=== PATIENT | female | born 1975 | race Caucasian/White ===

== ENCOUNTER 2020-03-27 12:50 | Emergency (ER) | payer MEDICARE, MEDICAID, SELFPAY ==
--- NOTE | 2020-03-27 12:54 | CT_ITS ---
EXAMINATION: CT HEAD WITHOUT CONTRAST (STROKE PROTOCOL) CLINICAL INFORMATION: Stroke protocol. Headache with weakness COMPARISON: October 10, 2018 TECHNIQUE: Contiguous axial imaging was performed from the skull base to vertex without intravenous administration of contrast. This CT examination was performed using dose optimization techniques as appropriate, variously including the following: *Automated exposure control *Adjustment of mA and/or kV according to patient size (this includes techniques or standardized protocols for targeted exams where dose is matched to indication/reason for exam; i.e. extremities or head) *Use of iterative reconstruction technique DLP: 556 mGy-cm FINDINGS: There is no intracranial hemorrhage, hematoma, or extra-axial fluid collection. The ventricles are normal in size. There is no hydrocephalus, edema, or mass effect. The shah-white matter differentiation appears symmetric. There is no acute infarct or mass lesion. The calvarium appears intact. There is no pneumocephalus or orbital emphysema. The visualized sinuses and middle ears and mastoid air cells show no significant mucosal thickening. There are no air-fluid levels. CT/CT head for stroke IMPRESSION: No acute intracranial pathology. This critical result was discussed with Dr. Rayo at 1:12 PM hours on March 27, 2020+. It was ascertained that the content and urgency of the report was understood at the time of direct communication.
[2020-03-27 13:04] VITALS: BP 126/87; BP 143/83; PULSE 75; PULSE 82; RESP 14; TEMP 36.9; O2SAT 96; O2SAT 98; BMI 26.8
[2020-03-27] MEDS: ondansetron HCL 4 MG/2 ML VIAL IVPUSH (13:30)
[2020-03-27] MEDS: Ketorolac Tromethamine 30 MG/ML VIAL IVPUSH (13:30)
[2020-03-27] MEDS: diphenhydrAMINE HCL 50 MG/ML VIAL 25 MG IVPUSH (13:30)
[2020-03-27] MEDS: Prochlorperazine Edisylate 10 MG/2 ML VIAL IVPUSH (13:30)
[2020-03-27 13:35] VITALS: BP 138/78; PULSE 100
--- NOTE | 2020-03-27 13:36 | ED.HA ---
HPI - Headache General Chief Complaint: Headache Stated Complaint: r sided weakness/facial droop, lkwt 1300 yesterday Time Seen by Provider: 03/27/20 12:54 History of Present Illness HPI Narrative: Patient has a history of migraine headaches that is complex in the past. With history of having right arm weakness with her headaches in the past. Presented today having similar headaches that is on the right side associated with right arm weakness that started about 24 hours ago. Patient denies any fever chills. No change in vision. Positive photophobia. Headache similar to previous migraine. No coughing congestion upper respiratory symptoms. + nausea no vomiting. Related Data Previous Rx's Medication Instructions Recorded ibuprofen 400 mg PO Q6H PRN #20 tab 03/27/20 ondansetron 4 mg PO TID PRN 5 Days #10 tab 03/27/20 Allergies Allergy/AdvReac Type Severity Reaction Status Date / Time lamotrigine [From Lamictal] Allergy Mild RASH Unverified 01/17/20 17:27 lithium Allergy Unknown Verified 04/24/15 00:00 mushroom Allergy Unknown SWELLING Unverified 01/17/20 17:27 divalproex sodium AdvReac Unknown HALLUCINATI Unverified 01/17/20 17:27 [From DEPAKOTE] ONS Review of Systems Review of Systems: Constitutional: No Weight loss, No Fever, No Chills, No Night Sweats, No Fatigue, No Malaise ENT/Mouth: No Hearing loss, No Ear Pain, No Nasal Congestion, No Sinus Pain, No Hoarseness, No sore throat, No Rhinorrhea, No Swallowing Difficulty Eyes: No Eye Pain, No Swelling, No Redness, No Foreign Body, No Discharge, No Vision Changes Cardiovascular: No Chest Pain, No SOB, No Dyspnea on Exertion, No Orthopnea, No Edema, No Palpitations Respiratory: No Cough, No Sputum, No Wheezing, No Smoke Exposure, No Dyspnea Gastrointestinal: No Nausea, No Vomiting, No Diarrhea, No Constipation, No abdominal Pain, No Hematochezia, No Melena Genitourinary: no irregular bleeding, No Dysuria, No Urinary Frequency, No Hematuria, No Urinary Incontinence, No Urgency, No Flank Pain, No Urinary Flow Changes, No Hesitancy Musculoskeletal: No joint pain, No Myalgias, No Joint Swelling Skin: No Skin Lesions, No rash Neuro: No Weakness, No Numbness, No Paresthesias, No Loss of Consciousness, No Dizziness, No Headache Psych: No Anxiety/Panic, No Depression, No SI/HI/AH/VH, No Social Issues, Heme/Lymph: No Bruising, No Bleeding,No Lymphadenopathy Endocrine: No Polyuria, No Polydipsia, No Temperature Intolerance [facility] Past Medical History Attestation statement: The following information was validated with the patient. Source: unable to obtain Medical History Migraine PTSD (post-traumatic stress disorder) Seasonal allergies Social History Social History Alcohol intake: never Smoking Status: Never smoker Use of substances other than those prescribed or required for medical reasons: No Advance Directives: No Advance Directives Information Provided: Yes Physical Exam Vital Signs: Vital Signs: Last Vital Signs Temp 98.4 F 03/27/20 13:04 Pulse 80 03/27/20 15:12 Resp 18 03/27/20 15:12 BP 105/57 L 03/27/20 15:12 Pulse Ox 100 03/27/20 15:12 Body Mass Index 26.8 Appearance: Alert. Oriented X3. No acute distress. Eyes: Pupils equal, round and reactive to light. ENT: Pharynx normal. Neck: Normal inspection. Neck supple. No lymph nodes noted. No crepitus CVS: Normal heart rate and rhythm. Pulses normal. Normal S1 and S2 Respiratory: No respiratory distress. Breath sounds normal. No Wheezing. No rales Abdomen: Soft and nontender. No rigidity. No distention. good BS x4 Skin: Skin warm and dry. Normal skin color. Normal skin turgor. Extremities: No lower extremity edema. Neurovascular intact to all extremities. No Lacerations. No Rash Neuro: Oriented X 3. No motor deficit. No sensory deficit. Moving all extermities. No slurred speech NIH stroke scale was 0. NIH Stroke Scale Internal: Initial- Upon Arrival Level of Consciousness: Alert Level of Consciousness Questions: Answers both questions correctly Level of Consciousness Commands: Performs both tasks correctly Best Gaze: Normal Visual: No visual loss Facial Palsy: Normal Motor Arm (Right): No drift Motor Arm (Left): No drift Motor Leg (Right): No drift Motor Leg (Left): No drift Limb Ataxia: Absent Sensory: Normal Best Language: No aphasia Dysarthia: Normal Extinction and Inattention: No abnormality Score: 0 MDM - Headache MDM Narrative Medical decision making narrative: Patient has a history of similar headaches in the past. Positive history of having right arm weakness. Will give pain medication. Patient well appearing. No distress. Repeat exam patient well-appearing headache has subsided along with the weakness has disappeared. Likely symptoms related to complex migraine. CT scan of the head was negative for any acute evidence of bleeding or mass. In stable condition. Will discharge home Differential Diagnosis Differential diagnosis: Likely migraine, tension headache, subarachnoid hemorrhage, headache and meningitis Medical Records Attestation: I reviewed the patient's medical records. Lab Data Attestation: I reviewed the patient's lab results. Result diagrams: 03/27/20 14:30 03/27/20 14:30 Labs: Lab Results 03/27/20 03/27/20 Range/Units 14:30 14:30 WBC 7.7 (4.8-10.8) X10*3/uL RBC 4.33 (4.20-5.50) X10*6/uL Hgb 12.7 (12.0-16.0) g/dl Hct 37.7 (37-47) % MCV 87.1 (80-98) fL MCH 29.3 (27.0-33.0) pg MCHC 33.7 (31.0-35.0) g/dl RDW 12.0 (11.0-16.0) % Plt Count 298 (160-400) X10*3/uL MPV 9.4 (9.4-12.3) fL Immature Gran % (Auto) 0.3 (0.0-0.4) % Neut % (Auto) 58.2 (45-73) % Lymph % (Auto) 28.3 (20-40) % [place] % (Auto) 8.9 (2-11) % Eos % (Auto) 3.9 (0-4) % Baso % (Auto) 0.4 (0-2) % Lymph # (Auto) 2.2 (1.2-4.9) X10*3/uL [place] # (Auto) 0.7 (0.1-1.2) X10*3/uL Eos # (Auto) 0.3 (0.0-0.4) X10*3/uL Baso # (Auto) 0.0 (0.0-0.2) X10*3/uL Abs Immat Gran (auto) 0.02 (0.00-0.03) X10*3/uL Absolute Neuts (auto) 4.5 (2.0-8.3) X10*3/uL Absolute Nucleated RBC 0.000 (0.0-0.012) X10*3/uL Nucleated RBC % (auto) 0.0 (0.0-0.2) /100WBC Sodium 138 (135-145) mmol/L Potassium 4.0 (3.3-5.1) mmol/l Chloride 108 (96-108) mmol/L Carbon Dioxide 23 (22-29) mmol/L Anion Gap 11 L (12-20) BUN 14 (9-16) mg/dL Creatinine 0.88 (0.5-1.4) mg/dL Estim Creat Clear Calc 80.4 Estimated GFR > 60 Random Glucose 101 (60-115) mg/dL Calcium 8.4 (8.4-10.2) mg/dL Total Bilirubin 0.7 (0.0-1.0) mg/dL AST 13 (5-31) U/L ALT 10 (0-31) U/L Alkaline Phosphatase 45 (39-117) U/L Total Protein 5.7 L (6.5-8.0) g/dL Albumin 3.7 (3.5-5.0) g/dL ECG Data Attestation: I personally reviewed and interpreted this ECG as follows: Discharge Plan Discharge Clinical Impression: Migraine Patient Disposition: Home, Self-Care Instructions: Acute Headache (ED) Prescriptions: New ibuprofen 400 mg tablet 400 mg PO Q6H PRN (Reason: pain) Qty: 20 RF: 0 ondansetron 4 mg tablet,disintegrating 4 mg PO TID PRN (Reason: nausea and vomiting) 5 Days Qty: 10 RF: 0 Referrals: [facility] [Primary Care Provider] - 2 days
[2020-03-27 14:05] VITALS: BP 114/66; PULSE 78; O2SAT 98
[2020-03-27 14:38] LABS: MANUAL DIFF FLAG NO
[2020-03-27 14:39] LABS: Basophils Percent Auto 0.4 % (0-2); Eosinophils Absolute Auto 0.3 X10*3/uL (0.0-0.4); Eosinophils Percent Auto 3.9 % (0-4); Hematocrit 37.7 % (37-47); Hemoglobin 12.7 g/dl (12.0-16.0); Imm Gran Abs Auto 0.02 X10*3/uL (0.00-0.03); Imm Gran Pct Auto 0.3 % (0.0-0.4); Lymphocytes Absolute Auto 2.2 X10*3/uL (1.2-4.9); Lymphocytes Percent Auto 28.3 % (20-40); Mean Corpuscular HGB Conc 33.7 g/dl (31.0-35.0); Mean Corpuscular Hemoglobin 29.3 pg (27.0-33.0); Mean Corpuscular Volume 87.1 fL (80-98); Mean Platelet Volume 9.4 fL (9.4-12.3); Monocytes Absolute Auto 0.7 X10*3/uL (0.1-1.2); Monocytes Percent Auto 8.9 % (2-11); Neutrophils Absolute Auto 4.5 X10*3/uL (2.0-8.3); Neutrophils Percent Auto 58.2 % (45-73); Platelet Count 298 X10*3/uL (160-400); Red Blood Count 4.33 X10*6/uL (4.20-5.50); White Blood Count 7.7 X10*3/uL (4.8-10.8)
[2020-03-27 14:59] LABS: Alanine Aminotransferase 10 U/L (0-31); Albumin Level 3.7 g/dL (3.5-5.0); Alkaline Phosphatase 45 U/L (39-117); Anion Gap 11 (12-20); Aspartate Amino Transferase 13 U/L (5-31); Bilirubin Total 0.7 mg/dL (0.0-1.0); Blood Urea Nitrogen 14 mg/dL (9-16); Calcium 8.4 mg/dL (8.4-10.2); Carbon Dioxide 23 mmol/L (22-29); Chloride 108 mmol/L (96-108); Creatinine Clr Calc Pharmacy 80.4; Estimated Glomerular Filt Rate > 60; Glucose Random 101 mg/dL (60-115); Sodium 138 mmol/L (135-145); Total Protein 5.7 g/dL (6.5-8.0)
--- NOTE | 2020-03-27 15:00 | PC.NURSE ---
received report from maria luisa carvajal
[2020-03-27] MEDS: HYDROmorphone HCl 0.5 MG/0.5 ML SYRINGE IVPUSH (15:11)
--- NOTE | 2020-03-27 15:11 | PC.NURSE ---
pt resting in the stretcher with eyes shut, pt states heaving a headache that started yesterday, hx of migraines. headache located on the posterior of the head, some light sensitivity, states feeling a little better since arrival, pain at 7/10. pt medicated per md orders
[2020-03-27 15:12] VITALS: BP 105/57; PULSE 80; RESP 18; O2SAT 100
--- NOTE | 2020-03-27 15:42 | PC.NURSE ---
pt reports feeling better and would like to go home
[2020-03-27 16:40] LABS: Glucose, Whole Blood 130 mg/dL (60-115)
--- NOTE | 2020-03-27 17:48 | PC.NURSE ---
Late entry for 1730. RICK Romero present in WR to speak with patient. Pt has been in WR for over an hour while legal secretary receptionist and ED director have attempted to find her a ride home. Pt stated repeatedly that she had no ride. This RN spoke iwht on phone who stated they had no money for a cab. Cab voucher was dispensed but cabs were not available during the holiday. In the end patient found a ride from her mother and has left. She was offered food and drink while in the WR and was calm during her time in WR.
== END 2020-03-27 15:51 | disposition home or self-care (01) ==
PROVIDERS: Nurse Practitioner Primary Care; Emergency Provider Emergency Medicine Emergency Medical Services
DX: G43.909 Migraine, unspecified, not intractable, without status migrainosus (principal); R29.810 Facial weakness; Z79.899 Other long term (current) drug therapy
CPT/HCPCS: 36415; 70450; 80053; 82947; 85025; 96374; 96375; 99284; J1170; J1200; J1885; J2405

== ENCOUNTER 2020-06-12 | Outpatient (REF) | payer OTHER, SELFPAY ==
[2020-06-20 05:02] LABS: HPV mRNA E6/E7 rflx Not Detected (Not Detected)
== END 2020-06-12 00:01 | disposition home or self-care (01) ==
LOC: HO.LNP
PROVIDERS: Visit Provider Internal Medicine
DX: Z12.4 Encounter for screening for malignant neoplasm of cervix (principal); Z11.51 Encounter for screening for human papillomavirus (HPV)
CPT/HCPCS: 87624; 88142

== ENCOUNTER 2020-07-04 08:56 | Outpatient (REF) | payer OTHER, SELFPAY ==
[2020-07-04 11:16] LABS: MANUAL DIFF FLAG NO
[2020-07-04 11:30] LABS: Basophils Percent Auto 0.6 % (0-2); Eosinophils Absolute Auto 0.3 X10*3/uL (0.0-0.4); Hematocrit 41.7 % (37-47); Hemoglobin 14.1 g/dl (12.0-16.0); Imm Gran Abs Auto 0.02 X10*3/uL (0.00-0.03); Imm Gran Pct Auto 0.3 % (0.0-0.4); Lymphocytes Absolute Auto 2.2 X10*3/uL (1.2-4.9); Lymphocytes Percent Auto 30.4 % (20-40); Mean Corpuscular HGB Conc 33.8 g/dl (31.0-35.0); Mean Corpuscular Hemoglobin 29.3 pg (27.0-33.0); Mean Corpuscular Volume 86.7 fL (80-98); Monocytes Absolute Auto 0.6 X10*3/uL (0.1-1.2); Monocytes Percent Auto 8.5 % (2-11); Neutrophils Absolute Auto 4.1 X10*3/uL (2.0-8.3); Neutrophils Percent Auto 56.2 % (45-73); Platelet Count 364 X10*3/uL (160-400); Red Blood Count 4.81 X10*6/uL (4.20-5.50); Red Cell Distribution Width 12.7 % (11.0-16.0); White Blood Count 7.2 X10*3/uL (4.8-10.8)
[2020-07-04 11:56] LABS: Alanine Aminotransferase 11 U/L (0-31); Anion Gap 12 (12-20); Aspartate Amino Transferase 17 U/L (5-31); Blood Urea Nitrogen 13 mg/dL (9-16); Calcium 9.3 mg/dL (8.4-10.2); Carbon Dioxide 21 mmol/L (22-29); Chloride 108 mmol/L (96-108); Cholesterol 210 mg/dL; Estimated Glomerular Filt Rate > 60; Glucose Fasting 95 mg/dL (60-99); HDL Cholesterol 52 mg/dL; LDL Cholesterol Calculated 139 mg/dl; Sodium 137 mmol/L (135-145); Triglycerides 98 mg/dL
[2020-07-04 12:23] LABS: TSH reflex Free T4 0.38 uIU/mL (0.32-4.0); Vitamin D 25-OH Total 11.8 ng/mL (>30)
== END 2020-07-04 08:57 | disposition home or self-care (01) ==
LOC: HO.HMGCLDS 08:56
PROVIDERS: PCP Internal Medicine; Visit Provider Internal Medicine
DX: Z00.01 Encounter for general adult medical examination with abnormal findings (principal); I10 Essential (primary) hypertension; G43.909 Migraine, unspecified, not intractable, without status migrainosus; F43.10 Post-traumatic stress disorder, unspecified; Z20.822 Contact with and (suspected) exposure to COVID-19
CPT/HCPCS: 36415; 80048; 80061; 82306; 84443; 84450; 84460; 85025; C9803; U0003; U0005

== ENCOUNTER 2021-06-17 08:39 | Outpatient (RCR) | payer OTHER, SELFPAY ==
--- NOTE | 2021-06-17 10:44 | MHC.PT.EP ---
[facility] [place] Office [place] Office [place] Office [address] Huma Castillo [address] [phone] F: [phone] F: [phone] F: [phone] F: [phone] Physical Therapy Plan of Care Date of Evaluation: Date of Surgery: n/a Diagnosis: low back pain Assessment: Patient is a 45 year old female presenting to PT with complaints of pain in her low back and B hips. Pt reports onset of pain began 2 weeks ago when bowling. She presents today with impairments in pain, lumbar ROM, hip strength, core strength, and posture. 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 Pt expresses terminal gauger goal of reducing pain, and is motivated to work towards this in PT. Clinical presentation today is most consistent with signs and sx associated with chronic low back pain with likely myofascial component and pt will benefit from skilled PT to address the following problems and impairments noted upon evaluation: pain, lumbar ROM, hip strength, core strength, and posture. These problems limit the patient with the following functional activities: ADLs, ambulation, sitting, stair negotiation, transfers, lifting. The prescribed treatment plan of care is medically necessary. Co-morbidities of PTSD were identified and taken into considerations of plan of care. Pt was educated on HEP, role of PT, prognosis, POC. Frequency and Duration: The patient will be seen 2 x week x 4 weeks Short Term Goals: Pt will demonstrate <4/10 pain at rest in 2 weeks for improved QOL. Pt will demonstrate improved hip strength by 1/3 MMT for improved lumbopelvic stability in 2 weeks. Pt will demonstrate ability to perform PPT with good TA activation in 2 weeks for improved core stability. Pt will demonstrate ability to perform lumbar AROM with min to no pain in 2 weeks. [facility] Goals: Pt will demonstrate <20% disability on Evi in 4 weeks for improved overall functional mobility. Pt will demonstrate ability to ambulate x 20 min with min to no pain in 4 weeks for improved access to the community. Pt will demonstrate ability to complete ADLs with min to no pain in 4 weeks for improved tolerance to role at home. Treatment Plan: Modalities to reduce pain, spasms and effusion. Manual therapy to restore motion and function. Therapeutic exercise to improve strength and flexibility. Neuromuscular re-education for posture and balance. Therapeutic activities to return to functional activities of daily living. Electronically signed by: Candida Huynh, PT, DPT, ATC Please sign and return to therapist. Thank you for your referral.
--- NOTE | 2021-06-29 10:58 | MHC.PT.DC ---
[facility] [place] Office [place] Office [place] Office [address] [phone] F: [phone] F: [phone] F: [phone] F: [phone] Physical Therapy Discharge Report Diagnosis: low back pain Date of Surgery: n/a Date of Evaluation: 06/17/21 Date of Discharge: 06/29/21 Treatments to Date: 1 Cancellations to Date: 0 No Shows to Date: 3 Discharge Status: Visit Non-compliance Discharge Summary: Pt has failed to comply with [facility] [place] policy and now showed her first 3 appts since the eval. Electronically signed by: Candida Huynh, PT, DPT, ATC Please sign and return to therapist. Thank you for your referral.
== END 2021-06-29 10:59 | disposition home or self-care (01) ==
LOC: HO.PTCHIC 08:39
PROVIDERS: PCP Internal Medicine; Visit Provider Internal Medicine
DX: M54.50 Low back pain, unspecified (principal)
CPT/HCPCS: 97110; 97162

== ENCOUNTER 2021-08-28 12:10 | Emergency (ER) | payer OTHER, SELFPAY ==
[2021-08-28 12:24] VITALS: BP 177/93; PULSE 82; RESP 19; TEMP 36.6; O2SAT 98; BMI 25.7
--- NOTE | 2021-08-28 13:01 | ED.HA ---
HPI - Headache General Chief Complaint: Headache Stated Complaint: migraine head pressure visual distrubances Time Seen by Provider: 08/28/21 13:01 Source: patient Mode of arrival: ambulatory Limitations: no limitations History of Present Illness HPI Narrative: Patient recently had COVID about 3 weeks ago with history of migraine headache been having headache since then localized mostly in the right side with dizziness vertiginous feeling especially moving the head to the right side with tinnitus. No fever no chills no vomiting has some nausea no cough at this time no shortness of breath Related Data Home Medications Medication Instructions Recorded Confirmed ibuprofen 200 mg tablet 200 mg PO Q6H PRN 06/19/21 06/25/21 Previous Rx's Medication Instructions Recorded dqcwhabdvg-jecryntbvdwle-bpjpaobu 1 cap PO Q12H PRN #10 cap 06/19/21 50 mg-325 mg-40 mg capsule amoxicillin 500 mg capsule 500 mg PO Q8H #30 cap 07/21/21 kuiyrrawel-fgbxtjjsufohy-xncevikw 1 cap PO Q6H PRN #20 cap 08/28/21 50 mg-300 mg-40 mg capsule (Fioricet) meclizine 25 mg tablet 25 mg PO TID PRN #20 tab 08/28/21 ondansetron 4 mg disintegrating 4 mg PO Q6-8H PRN #14 tab 08/28/21 tablet Allergies Allergy/AdvReac Type Severity Reaction Status Date / Time lamotrigine [From Lamictal] Allergy Mild RASH Verified 07/21/21 10:02 mushroom Allergy Unknown SWELLING Verified 07/21/21 10:02 divalproex sodium AdvReac Unknown HALLUCINATI Verified 07/21/21 10:02 [From DEPAKOTE] ONS Review of Systems Review of Systems: Yes all other systems are reviewed and are negative [facility] Past Medical History Medical History Encounter for general adult medical examination with abnormal findings Lumbago Migraine PTSD (post-traumatic stress disorder) Seasonal allergies Vertigo Vitamin D deficiency Family History Family History Father Dementia Mother HTN (hypertension) Hyperlipidemia Migraine Maternal Aunt Bipolar disorder Breast cancer Other Mental health disorder Substance use disorder Social History Social History Housing: Apartment Alcohol intake: never Patient Tobacco Use Status: Never used Tobacco Cigarettes Per Day: 3 e-Cigarette/Vaping Use: Currently Using Substance Use Type: Marijuana Advance Directives: No Advance Directives Information Provided: No service: No Current occupational status: employed Physical Exam Vital Signs: Vital Signs: Last Vital Signs Temp 98 F 08/28/21 12:24 Pulse 72 08/28/21 14:25 Resp 16 08/28/21 14:25 BP 117/67 08/28/21 14:25 Pulse Ox 100 08/28/21 14:25 BMI result Body Mass Index 25.7 Appearance: Alert. Oriented X3. No acute distress. Eyes: PERRLA, No Nystagmus ENT: Pharynx normal. Oral Mucosa moist Neck: Normal inspection. Neck supple. CVS: Normal heart rate and rhythm. Pulses normal. Respiratory: No respiratory distress. Equal air entry bilateral, Abdomen: Soft and nontender. Skin: Skin warm and dry. Normal skin color. Normal skin turgor. Extremities: No lower extremity edema. No calf tenderness Neuro: Oriented X 3. No motor deficit. No sensory deficit.No cerebellar signs , cranial nerves II-XII intact MDM - Headache MDM Narrative Medical decision making narrative: Patient with migraine headache and benign positional vertigo and responded to IV medication Decadron Benadryl Toradol and metoclopramide and IV fluid will discharge patient home Lab Data Attestation: I reviewed the patient's lab results. Result diagrams: 08/28/21 13:46 08/28/21 13:46 Labs: Lab Results 08/28/21 08/28/21 Range/Units 13:46 13:46 WBC 8.1 (4.8-10.8) X10*3/uL RBC 4.43 (4.20-5.50) X10*6/uL Hgb 12.7 (12.0-16.0) g/dl Hct 38.2 (37.0-47.0) % MCV 86.2 (80.0-98.0) fL MCH 28.7 (27.0-33.0) pg MCHC 33.2 (31.0-35.0) g/dl RDW 13.2 (11.0-16.0) % Plt Count 398 (160-400) X10*3/uL MPV 9.2 L (9.4-12.3) fL Immature Gran % (Auto) 0.2 (0.0-0.4) % Neut % (Auto) 67.9 (45-73) % Lymph % (Auto) 23.9 (20-40) % [place] % (Auto) 6.2 (2-11) % Eos % (Auto) 1.2 (0-4) % Baso % (Auto) 0.6 (0-2) % Lymph # (Auto) 1.9 (1.2-4.9) X10*3/uL [place] # (Auto) 0.5 (0.1-1.2) X10*3/uL Eos # (Auto) 0.1 (0.0-0.4) X10*3/uL Baso # (Auto) 0.1 (0.0-0.2) X10*3/uL Abs Immat Gran (auto) 0.02 (0.00-0.03) X10*3/uL Absolute Neuts (auto) 5.5 (2.0-8.3) x10*3/uL Absolute Nucleated RBC 0.000 (0.0-0.012) X10*3/uL Nucleated RBC % (auto) 0.0 (0.0-0.2) /100WBC Sodium 139 (135-145) mmol/L Potassium 4.3 (3.3-5.1) mmol/L Chloride 107 (96-108) mmol/L Carbon Dioxide 25 (22-29) mmol/L Anion Gap 11 L (12-20) BUN 12 (9-16) mg/dL Creatinine 0.82 (0.5-1.4) mg/dL Estim Creat Clear Calc 83.0 Estimated GFR > 60 Random Glucose 87 (60-115) mg/dL Calcium 9.6 (8.4-10.2) mg/dL Discharge Plan Discharge Clinical Impression: Migraine, Benign paroxysmal positional vertigo Patient Disposition: Home, Self-Care Instructions: Migraine Headache (ED), Vertigo (ED) Additional Instructions: Rest at home take medication as prescribed and follow with PCP Prescriptions: New herikpcesg-pweyswcijdspt-bqrx [Fioricet] 50-300-40 mg capsule 1 cap PO Q6H PRN (Reason: headache) Qty: 20 0RF meclizine 25 mg tablet 25 mg PO TID PRN (Reason: dizziness) Qty: 20 0RF ondansetron 4 mg tablet,disintegrating 4 mg PO Q6-8H PRN (Reason: nausea and vomiting) Qty: 14 0RF No Action amoxicillin 500 mg capsule 500 mg PO Q8H Qty: 30 0RF ibuprofen 200 mg tablet 200 mg PO Q6H PRN0RF jjdjnhzlgk-xzsredmdzfyjs-utaa 50-325-40 mg capsule 1 cap PO Q12H PRN (Reason: migraine headache) Qty: 10 0RF Interventions: ED Discharge Assessment Last Done: 08/28/21 15:45 Discharge Date/Time: 08/28/21 15:47
[2021-08-28] MEDS: 0.9 % Sodium Chloride 1,000 ML 999 ML IV (13:47)
[2021-08-28] MEDS: diphenhydrAMINE HCL 50 MG/ML VIAL 25 MG IVPUSH (13:48)
[2021-08-28] MEDS: dexAMETHasone sod phosphate 10 MG/ML VIAL IVPUSH (13:48)
[2021-08-28] MEDS: Ketorolac Tromethamine 30 MG/ML VIAL IVPUSH (13:48)
[2021-08-28] MEDS: Metoclopramide HCl 10 MG/2 ML VIAL IVPUSH (13:48)
[2021-08-28 13:54] LABS: MANUAL DIFF FLAG NO
[2021-08-28 14:04] LABS: Basophils Absolute Auto 0.1 X10*3/uL (0.0-0.2); Basophils Percent Auto 0.6 % (0-2); Eosinophils Absolute Auto 0.1 X10*3/uL (0.0-0.4); Eosinophils Percent Auto 1.2 % (0-4); Hematocrit 38.2 % (37.0-47.0); Hemoglobin 12.7 g/dl (12.0-16.0); Imm Gran Abs Auto 0.02 X10*3/uL (0.00-0.03); Imm Gran Pct Auto 0.2 % (0.0-0.4); Lymphocytes Absolute Auto 1.9 X10*3/uL (1.2-4.9); Lymphocytes Percent Auto 23.9 % (20-40); Mean Corpuscular HGB Conc 33.2 g/dl (31.0-35.0); Mean Corpuscular Hemoglobin 28.7 pg (27.0-33.0); Mean Corpuscular Volume 86.2 fL (80.0-98.0); Mean Platelet Volume 9.2 fL (9.4-12.3); Monocytes Absolute Auto 0.5 X10*3/uL (0.1-1.2); Monocytes Percent Auto 6.2 % (2-11); Neutrophils Absolute Auto 5.5 x10*3/uL (2.0-8.3); Neutrophils Percent Auto 67.9 % (45-73); Platelet Count 398 X10*3/uL (160-400); Red Blood Count 4.43 X10*6/uL (4.20-5.50); Red Cell Distribution Width 13.2 % (11.0-16.0); White Blood Count 8.1 X10*3/uL (4.8-10.8)
[2021-08-28 14:21] LABS: Anion Gap 11 (12-20); Blood Urea Nitrogen 12 mg/dL (9-16); Calcium 9.6 mg/dL (8.4-10.2); Carbon Dioxide 25 mmol/L (22-29); Chloride 107 mmol/L (96-108); Estimated Glomerular Filt Rate > 60; Glucose Random 87 mg/dL (60-115); Potassium 4.3 mmol/L (3.3-5.1); Sodium 139 mmol/L (135-145)
[2021-08-28 14:25] VITALS: BP 117/67; PULSE 72; RESP 16; O2SAT 100
== END 2021-08-28 15:47 | disposition home or self-care (01) ==
PROVIDERS: Emergency Provider Internal Medicine; PCP Internal Medicine
DX: G43.909 Migraine, unspecified, not intractable, without status migrainosus (principal); H81.13 Benign paroxysmal vertigo, bilateral; F17.210 Nicotine dependence, cigarettes, uncomplicated; Z71.6 Tobacco abuse counseling; F12.90 Cannabis use, unspecified, uncomplicated; Z79.899 Other long term (current) drug therapy
CPT/HCPCS: 36415; 80048; 85025; 96361; 96374; 96375; 99283; 99284; J1100; J1200; J1885; J2765

== ENCOUNTER → 2021-10-27 08:40 | Outpatient (BNVA) | payer OTHER, SELFPAY | PROVIDERS: PCP Internal Medicine; Visit Provider Nurse Practitioner Family | DX: G43.109 Migraine with aura, not intractable, without status migrainosus (principal); F43.10 Post-traumatic stress disorder, unspecified; F09 Unspecified mental disorder due to known physiological condition; R25.9 Unspecified abnormal involuntary movements | CPT/HCPCS: 99202 ==

== ENCOUNTER 2021-11-30 17:08 | Inpatient (IN) | payer OTHER, SELFPAY ==
--- NOTE | 2021-11-30 | ECG_ITS ---
Test Reason : CP Blood Pressure : / mmHG Vent. Rate : 062 BPM Atrial Rate : 062 BPM P-R Int : 168 ms QRS Dur : 078 ms QT Int : 404 ms P-R-T Axes : 054 082 052 degrees QTc Int : 410 ms Normal sinus rhythm with sinus arrhythmia Normal ECG When compared with ECG of 09-MAR-2019 08:16, No significant change was found Referred By: Oleksandr Ramey Electronically Signed By:KADEEM GIVENS MD
[2021-11-30 17:10] VITALS: BP 158/96; PULSE 107; RESP 18; TEMP 37; O2SAT 99; BMI 25.7
[2021-11-30 17:47] LABS: Amphetamine Screen Urine Not Detected (Not Detect); Barbiturates, Urine Not Detected (Not Detect); Benzodiazepines Screen Urine Not Detected (Not Detect); Cannabinoid Screen Urine POSITIVE (Not Detect); Cocaine Screen Urine Not Detected (Not Detect); Fentanyl, urine Not Detected (Not Detect); Opiate Screen Urine Not Detected (Not Detect); Phencyclidine Screen Urine Not Detected (Not Detect)
[2021-11-30 17:59] LABS: COVID-19 Test Negative (Negative); IDNOW Serial# 16C4AD1C
--- NOTE | 2021-11-30 18:21 | ED.PSYCH ---
HPI - Psych General Chief Complaint: Psychiatric Symptoms Stated Complaint: Crisis Time Seen by Provider: 11/30/21 18:21 Source: patient Mode of arrival: ambulatory Limitations: no limitations History of Present Illness HPI Narrative: Patient history of bipolar disorder under increased stress lately, history of 3 suicidal attempts in the past today while bringing her home got upset and felt like hurting herself by overdosing on Tylenol she got further depressed and suicidal when her spouse under stress told her why do not you just kill yourself Related Data Home Medications Medication Instructions Recorded Confirmed ibuprofen 200 mg tablet 200 mg PO Q6H PRN Pain 06/19/21 11/30/21 magnesium oxide 400 mg (241.3 mg 400 mg PO DAILY 11/30/21 11/30/21 magnesium) tablet Previous Rx's Medication Instructions Recorded dtuhmhtswy-jwstgtkybpitu-tvmeciyi 1 cap PO Q4H PRN migraine headache 10/27/21 50 mg-325 mg-40 mg capsule 30 days #16 caps onabotulinumtoxinA 200 unit 155 unit IM ONCE 12 weeks #1 ea 10/27/21 solution for injection (Botox) riboflavin (vitamin B2) 400 mg 400 mg PO DAILY 30 days #30 tabs 10/27/21 tablet rimegepant 75 mg disintegrating 75 mg PO Q OTHER DAY PRN migraine 11/26/21 tablet (Nurtec ODT) headache 30 days #16 tabs Allergies Allergy/AdvReac Type Severity Reaction Status Date / Time lamotrigine [From Lamictal] Allergy Mild RASH Verified 11/30/21 17:10 mushroom Allergy Unknown SWELLING Verified 11/30/21 17:10 divalproex sodium AdvReac Unknown HALLUCINATI Verified 11/30/21 17:10 [From DEPAKOTE] ONS Review of Systems Review of Systems: Yes all other systems are reviewed and are negative PMFSH Past Medical History Medical History Encounter for general adult medical examination with abnormal findings Lumbago Migraine PTSD (post-traumatic stress disorder) Seasonal allergies Vertigo Vitamin D deficiency Family History Family History Father Dementia Mother HTN (hypertension) Hyperlipidemia Migraine Maternal Aunt Bipolar disorder Breast cancer Other Mental health disorder Substance use disorder Social History Social History Housing: Apartment Alcohol intake: never Patient Tobacco Use Status: Current everyday Tobacco user Cigarettes Per Day: 3 e-Cigarette/Vaping Use: Currently Using Use of substances other than those prescribed or required for medical reasons: Yes Substance Use Type: Marijuana Advance Directives: No Advance Directives Information Provided: No service: No Current occupational status: employed Physical Exam Vital Signs: Vital Signs: Last Vital Signs Temp 98.6 F 11/30/21 17:10 Pulse 73 12/01/21 00:55 Resp 18 12/01/21 00:55 BP 183/99 H 12/01/21 00:55 Pulse Ox 100 12/01/21 00:55 O2 Del Method 12/01/21 00:55 BMI result Body Mass Index 25.7 Appearance: Alert. Oriented X3. No acute distress. Eyes: PERRLA, No Nystagmus ENT: Pharynx normal. Oral Mucosa moist Neck: Normal inspection. Neck supple. CVS: Normal heart rate and rhythm. Pulses normal. Respiratory: No respiratory distress. Equal air entry bilateral, no wheezing/rales/rhonchi Abdomen: Soft and nontender. Bowel sounds are present, no mass palpable, no CVA tenderness Skin: Skin warm and dry. Normal skin color. Normal skin turgor. Extremities: No lower extremity edema. No calf tenderness psych: Anxious very depressed with suicidal thoughts no hallucinations or delusions Neuro: Oriented X 3. No motor deficit. No sensory deficit.No cerebellar signs , cranial nerves II-XII intact MDM - Psych Lab Data Labs: Lab Results 11/30/21 11/30/21 Range/Units 17:22 17:22 Urine Opiates Screen Not Detected (Not Detect) Urine Fentanyl Screen Not Detected (Not Detect) Ur Barbiturates Screen Not Detected (Not Detect) Ur Phencyclidine Scrn Not Detected (Not Detect) Ur Amphetamines Screen Not Detected (Not Detect) U Benzodiazepines Scrn Not Detected (Not Detect) Urine Cocaine Screen Not Detected (Not Detect) U Marijuana (THC) Screen POSITIVE H (Not Detect) COVID-19 (ADRIEN) Negative (Negative) COVID-19 Clin Com See Note Discharge Plan Discharge Clinical Impression: Depression, Suicidal thoughts Patient Disposition: Still a Patient Prescriptions: No Action Nurtec ODT 75 mg tablet,disintegrating 75 mg PO Q OTHER DAY PRN (Reason: migraine headache) 30 Days Qty: 16 3RF Rx Instructions: at onset of migraine (do not take Fioricet for 7 days prior) magnesium oxide 400 mg (241.3 mg magnesium) tablet 400 mg PO DAILY Rx Instructions: may hold for loose stools ibuprofen 200 mg tablet 200 mg PO Q6H PRN (Reason: Pain) riboflavin (vitamin B2) 400 mg tablet 400 mg PO DAILY 30 Days Qty: 30 6RF Botox 200 unit recon soln 155 unit IM ONCE 84 Days Qty: 1 3RF Rx Instructions: Inject 155 units IM across forehead, scalp and иван trapezius Q 12 weeks tmonfsmdoo-ydwhmedbldqas-bgxl 50-325-40 mg capsule 1 cap PO Q4H PRN (Reason: migraine headache) 30 Days Qty: 16 2RF Rx Instructions: One tab at onset of migraine, may repeat in 4 hours (max 2 caps per day or 4 caps per week)
[2021-11-30 19:47] VITALS: BP 147/100; PULSE 64; RESP 16; O2SAT 100
--- NOTE | 2021-11-30 19:57 | PC.NURSE ---
Addendum entered by Ankit Lyons 11/30/21 21:11: Patient reports chest pain that is similar to chest pain she has had in the past. Dr. Mckeon made aware. Original Note: Dr. Mckeon made aware of patients BP. Patient reports incident of chest pain and palpitation for a brief moment yesterday
[2021-11-30 19:59] VITALS: BP 145/95
--- NOTE | 2021-11-30 21:04 | MHC.CARE ---
Desiree smart sheet submitted
--- NOTE | 2021-11-30 21:11 | PHA.MEDREC ---
Pharmacy Consult ? Medication Reconciliation Pharmacy has completed the medication reconciliation.
[2021-12-01 00:55] VITALS: BP 183/99; PULSE 73; RESP 18; O2SAT 100
[2021-12-01] MEDS: LORazepam 1 MG TABLET 2 MG PO ×2 (01:19→10:00)
--- NOTE | 2021-12-01 07:18 | PC.NURSE ---
patient appears to remain at rest at present, respirations are even and unlabored patient appears in no distress
[2021-12-01 07:48] VITALS: BP 124/78; PULSE 78; RESP 14; TEMP 36.1; O2SAT 97
[2021-12-01] MEDS: Nicotine Polacrilex 2 MG GUM BUCCAL (08:02)
[2021-12-01] MEDS: Magnesium Oxide 400 MG TABLET PO ×2 (09:59→21:53)
[2021-12-01] MEDS: Butalb/Acetamin/Caff 50/325/40 TABLET 1 TAB PO ×2 (09:59→16:54)
[2021-12-01 13:16] LABS: MANUAL DIFF FLAG NO
[2021-12-01 13:21] LABS: Basophils Percent Auto 0.4 % (0-2); Eosinophils Absolute Auto 0.2 X10*3/uL (0.0-0.4); Eosinophils Percent Auto 2.6 % (0-4); Hematocrit 39.9 % (37.0-47.0); Hemoglobin 13.6 g/dl (12.0-16.0); Imm Gran Abs Auto 0.02 X10*3/uL (0.00-0.03); Imm Gran Pct Auto 0.3 % (0.0-0.4); Lymphocytes Absolute Auto 2.1 X10*3/uL (1.2-4.9); Lymphocytes Percent Auto 30.3 % (20-40); Mean Corpuscular HGB Conc 34.1 g/dl (31.0-35.0); Mean Corpuscular Hemoglobin 29.1 pg (27.0-33.0); Mean Corpuscular Volume 85.4 fL (80.0-98.0); Mean Platelet Volume 9.3 fL (9.4-12.3); Monocytes Absolute Auto 0.7 X10*3/uL (0.1-1.2); Monocytes Percent Auto 9.3 % (2-11); Neutrophils Percent Auto 57.1 % (45-73); Platelet Count 313 X10*3/uL (160-400); Red Blood Count 4.67 X10*6/uL (4.20-5.50); Red Cell Distribution Width 12.5 % (11.0-16.0)
[2021-12-01 13:42] LABS: Alanine Aminotransferase 15 U/L (0-31); Albumin Level 4.5 g/dL (3.5-5.0); Alkaline Phosphatase 59 U/L (39-117); Anion Gap 13 (12-20); Aspartate Amino Transferase 21 U/L (5-31); Bilirubin Total 0.5 mg/dL (0.0-1.0); Blood Urea Nitrogen 10 mg/dL (9-16); Calcium 9.3 mg/dL (8.4-10.2); Carbon Dioxide 25 mmol/L (22-29); Chloride 103 mmol/L (96-108); Creatinine Clr Calc Pharmacy 93.2; Estimated Glomerular Filt Rate > 60; Glucose Fasting 86 mg/dL (60-99); Potassium 4.4 mmol/L (3.3-5.1); Sodium 137 mmol/L (135-145); Total Protein 7.2 g/dL (6.5-8.0)
[2021-12-01 15:23] VITALS: BP 150/85; PULSE 70
[2021-12-01] MEDS: LORazepam 1 MG TABLET PO (15:37)
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
[2021-12-01 18:00] VITALS: BP 111/63; PULSE 72; TEMP 36.7; O2SAT 95
[2021-12-01] MEDS: Lithium Carbonate 300 MG TABLET 150 MG PO (20:37)
[2021-12-01] MEDS: clonazePAM 0.5 MG TABLET PO (20:37)
[2021-12-02] MEDS: Butalb/Acetamin/Caff 50/325/40 TABLET 1 TAB PO ×2 (02:21→07:43)
[2021-12-02] MEDS: clonazePAM 1 MG TABLET PO ×2 (02:22→19:50)
[2021-12-02] MEDS: clonazePAM 0.5 MG TABLET PO ×2 (07:43→12:34)
[2021-12-02 08:00] VITALS: BP 126/79; PULSE 70; RESP 16; TEMP 36.3; O2SAT 98
[2021-12-02 08:59] LABS: Estimated Average Glucose 88 mg/dL; Hemoglobin A1c % 4.7 %
[2021-12-02 09:12] LABS: Cholesterol 211 mg/dL; HDL Cholesterol 55 mg/dL; LDL Cholesterol Calculated 141 mg/dl; Triglycerides 75 mg/dL
[2021-12-02 09:34] LABS: Free T4 (Free Thyroxine) 1.28 ng/dL (0.71-1.85); Thyroid Stimulating Hormone 0.41 uIU/mL (0.32-4.0)
[2021-12-02 09:37] LABS: Vitamin D 25-OH Total 24.3 ng/mL (>30)
[2021-12-02 09:53] LABS: Folate > 20.0 ng/mL (> or = 4.0); Vitamin B12 393 pg/mL (200-900)
[2021-12-02] MEDS: Nicotine Polacrilex 2 MG GUM BUCCAL (16:35)
--- NOTE | 2021-12-02 16:39 | PC.NURSE ---
Pt stating to this nurse you better sedate the fuck out of me for the sake of this unit, get me some haldol or something, I need to be sedated When asked what specifically triggered her pt was unable to elaborate It's everything, I'm bipolar . Provider made aware, awaiting orders.
[2021-12-02] MEDS: diphenhydrAMINE HCL 25 MG TABLET PO (17:20)
[2021-12-02] MEDS: HaloperidoL 5 MG TABLET PO (17:20)
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
[2021-12-02 18:35] VITALS: BP 139/77; PULSE 70; TEMP 36.3; O2SAT 100
[2021-12-02] MEDS: Lithium Carbonate 300 MG TABLET 150 MG PO (19:50)
[2021-12-02] MEDS: Magnesium Oxide 400 MG TABLET PO (19:52)
[2021-12-03] MEDS: clonazePAM 1 MG TABLET PO ×3 (02:06→18:16)
[2021-12-03] MEDS: Butalb/Acetamin/Caff 50/325/40 TABLET 1 TAB PO ×3 (02:06→19:27)
[2021-12-03] MEDS: HaloperidoL 5 MG TABLET PO ×2 (09:18→19:51)
[2021-12-03] MEDS: diphenhydrAMINE HCL 25 MG TABLET PO (09:54)
[2021-12-03 16:04] VITALS: BP 118/57; PULSE 82; TEMP 36.8; O2SAT 97
--- NOTE | 2021-12-03 17:59 | P.PNPSI_ITS ---
Subjective Subjective Date of Service: 12/03/21 Reason For Visit: Crisis Interim History: I evaluated the pt this evening and upon interview she says she feels very depressed and that her mom wont let her stay with her, now doesn't know where she will go, says she cant work on my mental health due to anxiety being worried she will not be able to see her son without safe housing, as she does not want to return to her spouse. Needs a [facility] referral. Doing well with her medications, I didnt scream at anyone, I didnt go on a medusa rage. Medication Compliance: Yes Side effects from medications: No Attending Groups: Intermittent Review of Systems Acute medical concerns: No Medical Review of Systems: unchanged Mental Status Exam Mental Status Exam Narrative: A&O. Unkempt, casual attire, dyed hair, normal body habitus. Good eye contact, attentive. No Tics or Tremors. No abnormal involuntary movements. Cooperative, able to engage in conversation without agitation. Non-pressured speech, spontaneous with regular rate and rhythm, normal vocal volume. No prolonged speech latency or dysarthria. Mood is ?anxious,? affect is somewhat less labile, calmer. Denies SI/SIB/HI upon inquiry. Denies A/VH or delusional thought content. Thoughts are goal oriented but perseverative. No known cognitive or memory impairment. Insight/ Judgment limited but adequate. Diagnostics Vital Signs (24Hr): Vital Signs - 24 hr 12/02/21 18:35 12/03/21 16:04 Temperature 97.3 F 98.3 F Pulse Rate 70 82 Blood Pressure 139/77 118/57 L Pulse Oximetry 100 97 Oxygen Delivery Method Room Air BMI result Body Mass Index 0.0 Labs Results: 12/01/21 13:10 12/01/21 13:10 Labs: Laboratory Results - last 48 hr 12/02/21 12/02/21 12/02/21 07:58 07:58 07:58 Estimat Average Glucose 88 Hemoglobin A1c % 4.7 Magnesium 2.0 Triglycerides 75 Cholesterol 211 LDL Cholesterol, Calc 141 HDL Cholesterol 55 Vitamin B12 25-OH Vitamin D Total 24.3 Folate TSH 0.41 Free T4 1.28 12/02/21 07:58 Estimat Average Glucose Hemoglobin A1c % Magnesium Triglycerides Cholesterol LDL Cholesterol, Calc HDL Cholesterol Vitamin B12 393 25-OH Vitamin D Total Folate > 20.0 TSH Free T4 Medications Medications Current Medications Acetaminophen/Butalbital/Caffeine (Butalb/Acetamin/Caff 50/325/40 Tablet) 1 tab PO Q4H PRN PRN Reason: migraine headache Last Admin: 12/03/21 12:22 Dose: 1 tab Al Hydroxide/Mg Hydroxide (Magnesium Hydrox/Alum Hydrox 30 Ml Oral.Susp) 30 ml PO Q6H PRN PRN Reason: Heartburn/Nausea Clonazepam (Clonazepam 1 Mg Tablet) 1 mg PO TID PRN PRN Reason: insomna Last Admin: 12/03/21 08:26 Dose: 1 mg Diphenhydramine HCl (Diphenhydramine Hcl 25 Mg Tablet) 25 mg PO Q6H PRN PRN Reason: prevent akathesia with haldol Last Admin: 12/03/21 09:54 Dose: 25 mg Haloperidol (Haloperidol 5 Mg Tablet) 5 mg PO TID PRN PRN Reason: agitation, anxiety Last Admin: 12/03/21 09:18 Dose: 5 mg Ibuprofen (Ibuprofen 200 Mg Tablet) 200 mg PO Q6H PRN PRN Reason: Pain, Moderate (Pain Scale 4-6 [place] Carbonate ([place] Carbonate Er 300 Mg Tablet.Er) 300 mg PO BEDTIME [facility] Last Admin: 12/03/21 05:45 Dose: Not Given Magnesium Hydroxide (Milk Of Magnesia 30 Ml Oral.Susp) 30 ml PO DAILY PRN PRN Reason: Constipation Magnesium Oxide (Magnesium Oxide 400 Mg Tablet) 400 mg PO BEDTIME [facility] Last Admin: 12/02/21 19:52 Dose: 400 mg Nicotine Polacrilex (Nicotine Polacrilex 2 Mg Gum) 2 mg BUCCAL QID PRN PRN Reason: Nicotine Cravings Last Admin: 12/02/21 16:35 Dose: 2 mg Non-Formulary Medication (Riboflavin (Vitamin B2)) 400 mg PO DAILY [facility] Non-Formulary Medication (Rimegepant [Nurtec Odt]) 75 mg PO Q48H PRN PRN Reason: migraine headache Allergies Allergies Allergy/AdvReac Type Severity Reaction Status Date / Time lamotrigine [From Lamictal] Allergy Mild RASH Verified 11/30/21 17:10 mushroom Allergy Unknown SWELLING Verified 11/30/21 17:10 divalproex sodium AdvReac Unknown HALLUCINATI Verified 11/30/21 17:10 [From DEPAKOTE] ONS Assessment & Plan Assessment & Plan (1) Bipolar I disorder with mixed features: Status: Acute Code(s): F31.9 - Bipolar disorder, unspecified (2) PTSD (post-traumatic stress disorder): Status: Acute Code(s): F43.10 - Post-traumatic stress disorder, unspecified Plan Deepika is a 46 y.o. Female who carries a dx of bipolar I DO with psychotic features, PTSD, and cannabis use disorder. Has hx of migraine headaches, fibro. Long hx of psych inpatient admissions for depression, mood lability, agitation, and SI with hx of SA by ODing on her psych medications. Utox only positive for cannabis, denies alcohol abuse. Multiple psychosocial stressors. Family has DCF involvement. Hx of DMH involvement. Plan: Increase lithium to 300 mg QHS. Continue klonopin 1 mg TID PRN. Continue haldol 5 mg TID PRN and benadryl 25 mg TID PRN for agitation. Pt tolerating the lithium increase. No medication changes, will monitor medication for benefit. Q15 min safety checks, CV Monitor response to medications. Monitor for safety in the milieu. Discharge on stabilization. Patient seen. Chart reviewed. Discussed with team. Obtain collateral contact info as needed I spent minutes with the patient and/or on the patient floor today, greater than?50% of which was spent counseling/coordinating care. Patient educated on: medication risk/benefits Reason for contiued inpatient stay Substantial Risk for: med/psych decompensation
[2021-12-03] MEDS: Lithium Carbonate ER 300 MG TABLET.ER PO (19:51)
[2021-12-03] MEDS: Magnesium Oxide 400 MG TABLET PO (19:51)
[2021-12-04] MEDS: clonazePAM 1 MG TABLET PO ×2 (02:22→10:26)
[2021-12-04] MEDS: Butalb/Acetamin/Caff 50/325/40 TABLET 1 TAB PO ×2 (05:17→10:25)
[2021-12-04] MEDS: HaloperidoL 5 MG TABLET PO ×2 (08:13→13:16)
[2021-12-04] MEDS: diphenhydrAMINE HCL 25 MG TABLET PO ×2 (08:14→13:16)
[2021-12-04] MEDS: Nicotine Polacrilex 2 MG GUM BUCCAL (08:15)
[2021-12-04] MEDS: Milk of Magnesia 30 ML ORAL.SUSP PO (08:16)
[2021-12-04] MEDS: Magnesium Hydrox/Alum Hydrox 30 ML ORAL.SUSP PO (08:16)
[2021-12-04 08:29] VITALS: BP 133/74; PULSE 62; RESP 18; TEMP 35.9
--- NOTE | 2021-12-04 23:44 | P.DS_ITS ---
DS: Providers Provider Date of Service: 12/04/21 Date of admission: 12/01/21 13:15 Date of discharge: 12/04/21 Primary care physician: Jessica Bishop MD Admitting clinician: Diana Mancera Attending physician on admission: Marco Peña Attending physician on discharge: Marco Peña Discharging clinician: Diana Mancera DS: Diagnosis Discharge Diagnosis (1) Bipolar I disorder with mixed features: Status: Acute (2) PTSD (post-traumatic stress disorder): Status: Acute DS: Summary Hospital Course Hospital Course: Deepika is a 46 y.o. Female who carries a dx of bipolar I DO with psychotic features, PTSD, and cannabis use disorder. Has hx of migraine headaches, fibro. Long hx of psych inpatient admissions for depression, mood lability, agitation, and SI with hx of SA by ODing on her psych medications. Utox only positive for cannabis, denies alcohol abuse. Multiple psychosocial stressors. Family has DCF involvement. Hx of [facility] involvement. Course of hospitalization: During pt's brief inpatient admission, lithium was started and increased to lithium ER 300 mg QHS. She was continued on klonopin 1 mg TID PRN. Continued on haldol 5 mg TID PRN and benadryl 25 mg TID PRN for agitation, mood lability, and paranoia. Pt reported having multiple triggers to past trauma and struggling with mood lability and agitation throughout discharge, however she was insightful and willing to accept medication. She initially had expressed intent to use her inpatient stay to work on housing and mood stability, however she abruptly advocated for discharge and this was honored, as she denies SI/SIB/HI and can adequately care for herself in the community, no imminent safety concerns at time of discharge. Pt expressed she would follow up with OP providers and continue on lithium trial, understands need for lab work to monitor therapeutic level. Status at Discharge Functional status at discharge: independent ambulation Overall status at discharge: patient is progressing back to baseline Time Spent with Patient Time attestation: Total time spent providing and/or coordinating discharge services: Discharge coordination time: Less than 30 minutes Quality: Safe Use of Opioids Does Pt have an Active Cancer Diagnosis on the Problem List?: No Quality: Stroke Does the patient have a stroke diagnosis?: No Physical Exam Vital Signs: Vital Signs: Last Vital Signs Temp 96.6 F L 12/04/21 08:29 Pulse 62 12/04/21 08:29 Resp 18 12/04/21 08:29 BP 133/74 12/04/21 08:29 Pulse Ox 97 12/03/21 16:04 O2 Del Method 12/04/21 08:29 BMI result Body Mass Index 0.0 Psych: Other: A&O. Unkempt, casual attire, dyed hair, normal body habitus. Good eye contact, attentive. No Tics or Tremors. No abnormal involuntary movements. Cooperative, able to engage in conversation without agitation. Non-pressured speech, spontaneous with regular rate and rhythm, normal vocal volume. No prolonged speech latency or dysarthria. Mood is ?anxious,? affect is somewhat less labile, calmer. Denies SI/SIB/HI upon inquiry. Denies A/VH or delusional thought content. Thoughts are goal oriented but perseverative. No known cognitive or memory impairment. Insight/ Judgment limited but adequate. Discharge Plan Discharge Patient Disposition: Home, Self-Care Discharge Diagnosis: PTSD Bipolar Disorder Referrals: Therapist: Luda Luna ([facility]) [Other] - 12/10/21 2 :00 pm (In-office appointment ) Psychiatrist: Nieves Cespedes ([facility]) [Other] - 12/16/21 3:00 pm (Telehealth ) Psychiatrist: Nieves Cespedes ([facility]) [Other] - 01/18/22 10:00 am (Telehealth ) Jessica Bishop MD [Primary Care Provider] - 1 Week Discharge Medications: New nicotine (polacrilex) 2 mg Gum 2 mg buccal QID PRN (Reason: Nicotine Cravings) Qty: 20 0RF haloperidol 5 mg Tablet 5 mg PO TID PRN (Reason: agitation, anxiety) Qty: 6 3RF clonazepam 1 mg Tablet 1 mg PO TID PRN (Reason: insomna) Qty: 6 3RF lithium carbonate 300 mg Tablet Extended Release 300 mg PO BEDTIME Qty: 7 1RF Continued Nurtec ODT 75 mg tablet,disintegrating 75 mg PO Q OTHER DAY PRN (Reason: migraine headache) 30 Days Qty: 16 3RF Rx Instructions: at onset of migraine (do not take Fioricet for 7 days prior) magnesium oxide 400 mg (241.3 mg magnesium) tablet 400 mg PO DAILY Rx Instructions: may hold for loose stools ibuprofen 200 mg tablet 200 mg PO Q6H PRN (Reason: Pain) riboflavin (vitamin B2) 400 mg tablet 400 mg PO DAILY 30 Days Qty: 30 6RF Botox 200 unit recon soln 155 unit IM ONCE 84 Days Qty: 1 3RF Rx Instructions: Inject 155 units IM across forehead, scalp and иван trapezius Q 12 weeks kwxglckicf-mcnuztevdgbpo-jcel 50-325-40 mg capsule 1 cap PO Q4H PRN (Reason: migraine headache) 30 Days Qty: 16 2RF Rx Instructions: One tab at onset of migraine, may repeat in 4 hours (max 2 caps per day or 4 caps per week) Discharge Orders: Discharge Order (Routine); Ordered 12/04/21 Ordered By: Sarita Buitrago Diet: Advance to usual diet Activity on Discharge: As tolerated Stand Alone Forms: Patient Portal Discharge page, Community Support Care Plan Goals: Mood stabilization Health Concerns: PTSD Bipolar Disorder Migraine Plan of Treatment: Take medications as directed Attend follow up appts Practice implementing coping skills Call/Return as needed Crisis Services [phone] Assessment: Risk assessment at time of discharge:? Patient was interviewed prior to discharge and found to be fully oriented and without any SI or HI. Patient has insight and demonstrates good judgment in terms of wanting to pursue treatment. Patient is not in imminent risk of harm to self or others and has a safety plan that includes presenting to the closest ER or calling 911 if feeling unsafe.? Patient has been observed closely by nursing and unit staff throughout admission; patient has not engaged in any behaviors that suggest dangerousness to self or others and has demonstrated appropriate behaviors and impulse control Discharge Date/Time: 12/04/21 15:02
== END 2021-12-04 15:02 | disposition home or self-care (01) | DRG 885 ==
LOC: HO.ED 12-01 07:09 → HO.PM5 12-01 13:30
PROVIDERS: Clinical Nurse Specialist Psychiatric/Mental Health, Adult; Internal Medicine; Registered Nurse; Admitting Provider Psychiatry & Neurology Psychiatry; Emergency Provider Emergency Medicine Emergency Medical Services; PCP Internal Medicine; Visit Provider Psychiatry & Neurology Psychiatry
DX: F31.9 Bipolar disorder, unspecified (principal); R45.851 Suicidal ideations; F43.10 Post-traumatic stress disorder, unspecified; F17.290 Nicotine dependence, other tobacco product, uncomplicated; Z20.822 Contact with and (suspected) exposure to COVID-19; Z88.8 Allergy status to other drugs, medicaments and biological substances; Z79.899 Other long term (current) drug therapy
CPT/HCPCS: 36415; 80053; 80061; 80307; 82306; 82607; 82746; 83036; 83735; 84439; 84443; 85025; 87635; 93005; 99285; Q0163

== ENCOUNTER 2021-12-29 08:02 | Outpatient (REF) | payer OTHER, SELFPAY ==
[2021-12-29 12:04] LABS: Estimated Glomerular Filt Rate > 60
[2021-12-29 12:22] LABS: Lithium 0.53 mmol/L (0.60-1.20)
[2021-12-29 12:32] LABS: Thyroid Stimulating Hormone 0.46 uIU/mL (0.32-4.0)
== END 2021-12-29 08:03 | disposition home or self-care (01) ==
LOC: HO.HMGCLDS 08:02
PROVIDERS: PCP Internal Medicine; Visit Provider Psychiatry & Neurology Psychiatry
DX: Z79.899 Other long term (current) drug therapy (principal)
CPT/HCPCS: 36415; 80178; 82565; 84443

== ENCOUNTER 2022-01-07 15:53 | Inpatient (IN) | payer OTHER, SELFPAY ==
--- NOTE | 2022-01-07 16:17 | ECG_ITS ---
Test Reason : med clearance Blood Pressure : / mmHG Vent. Rate : 055 BPM Atrial Rate : 055 BPM P-R Int : 152 ms QRS Dur : 078 ms QT Int : 404 ms P-R-T Axes : 000 083 063 degrees QTc Int : 386 ms Sinus bradycardia with marked sinus arrhythmia Otherwise normal ECG When compared with ECG of 30-NOV-2021 20:53, Heart rate has decreased Referred By: Adrianne Tong Electronically Signed By:JOANA GRIDER
[2022-01-07 16:35] VITALS: BP 139/81; PULSE 85; RESP 18; TEMP 36.3; O2SAT 98; BMI 27.4
[2022-01-07 16:45] LABS: MANUAL DIFF FLAG NO
[2022-01-07 16:46] LABS: Appearance Urine Clear; Color Urine Yellow; Glucose Urine UA Negative (Negative); Leukocyte Esterase Urine Negative (Negative); Nitrite Urine Negative (Negative); PH 7.5 (5.0-9.0); Specific Gravity - Urine <= 1.005 (1.005-1.025); Urine Blood Negative (Negative); Urine Ketones Negative (Negative); Urine Protein Negative (Neg-Trace)
[2022-01-07 16:50] LABS: Basophils Absolute Auto 0.1 X10*3/uL (0.0-0.2); Basophils Percent Auto 0.5 % (0-2); Eosinophils Absolute Auto 0.5 X10*3/uL (0.0-0.4); Hematocrit 37.6 % (37.0-47.0); Imm Gran Abs Auto 0.04 X10*3/uL (0.00-0.03); Imm Gran Pct Auto 0.4 % (0.0-0.4); Lymphocytes Absolute Auto 2.8 X10*3/uL (1.2-4.9); Lymphocytes Percent Auto 26.2 % (20-40); Mean Corpuscular HGB Conc 34.6 g/dl (31.0-35.0); Mean Corpuscular Volume 86.8 fL (80.0-98.0); Mean Platelet Volume 9.6 fL (9.4-12.3); Monocytes Absolute Auto 0.9 X10*3/uL (0.1-1.2); Monocytes Percent Auto 8.1 % (2-11); Neutrophils Absolute Auto 6.3 x10*3/uL (2.0-8.3); Neutrophils Percent Auto 59.8 % (45-73); Platelet Count 381 X10*3/uL (160-400); Red Blood Count 4.33 X10*6/uL (4.20-5.50); Red Cell Distribution Width 12.7 % (11.0-16.0); White Blood Count 10.5 X10*3/uL (4.8-10.8)
[2022-01-07 16:50] LABS: UPreg QC Valid YES; Urine Pregnancy NEGATIVE (NEGATIVE)
[2022-01-07 17:03] LABS: Alanine Aminotransferase 14 U/L (0-31); Albumin Level 4.1 g/dL (3.5-5.0); Alkaline Phosphatase 65 U/L (39-117); Anion Gap 12 (12-20); Aspartate Amino Transferase 16 U/L (5-31); Bilirubin Total 0.3 mg/dL (0.0-1.0); Blood Urea Nitrogen 8 mg/dL (9-16); Calcium 9.3 mg/dL (8.4-10.2); Carbon Dioxide 27 mmol/L (22-29); Chloride 104 mmol/L (96-108); Estimated Glomerular Filt Rate > 60; Ethanol < 10 mg/dL; Glucose Random 90 mg/dL (60-115); Potassium 3.8 mmol/L (3.3-5.1); Sodium 139 mmol/L (135-145); Total Protein 6.6 g/dL (6.5-8.0)
[2022-01-07 17:04] LABS: Amphetamine Screen Urine Not Detected (Not Detect); Barbiturates, Urine Not Detected (Not Detect); Benzodiazepines Screen Urine Not Detected (Not Detect); Cannabinoid Screen Urine POSITIVE (Not Detect); Cocaine Screen Urine Not Detected (Not Detect); Fentanyl, urine Not Detected (Not Detect); Opiate Screen Urine Not Detected (Not Detect); Phencyclidine Screen Urine Not Detected (Not Detect)
--- NOTE | 2022-01-07 17:09 | ED_ITS ---
HPI - Psych General Chief Complaint: Psychiatric Symptoms Stated Complaint: self harm ,suicidal Time Seen by Provider: 01/07/22 16:12 Source: patient Mode of arrival: ambulatory Limitations: no limitations History of Present Illness HPI Narrative: Patient presents emergency department for evaluation of worsening depression, anxiety, and suicidal ideations. She states that she has had thoughts [place] She reports that today while [place] the mall running errands she became very paranoid and had to go home. She states she has been compliant with her medications, but despite this has been having overwhelming depression since her recent hospital admission in November 2021. She states that her wendy had subsided at that point, but the depression has become too overwhelming. Denies hallucinations, dizziness, lightheadedness, chest pain, palpitations, shortness of breath, difficulty breathing, nausea, vomiting, abdominal pain, dysuria urinary frequency/ urgency/hesitancy. Denies recreational drug usage or alcohol consumption. Related Data Home Medications Medication Instructions Recorded Confirmed magnesium oxide 400 mg (241.3 mg 400 mg PO DAILY 11/30/21 01/07/22 magnesium) tablet clonazepam 1 mg tablet 1 mg PO BID PRN Anxiety 01/07/22 01/07/22 lithium carbonate 300 mg 300 mg PO BID 01/07/22 01/07/22 tablet,extended release vitamin B complex 1 cap PO DAILY 01/07/22 01/07/22 Previous Rx's Medication Instructions Recorded fflamunccc-yxeuxhfzgsfik-ofwqfhyv 1 cap PO Q4H PRN migraine headache 10/27/21 50 mg-325 mg-40 mg capsule 30 days #16 caps riboflavin (vitamin B2) 400 mg 400 mg PO DAILY 30 days #30 tabs 10/27/21 tablet rimegepant 75 mg disintegrating 75 mg PO Q OTHER DAY PRN migraine 11/26/21 tablet (Nurtec ODT) headache 30 days #16 tabs haloperidol 5 mg tablet 5 mg PO TID PRN agitation, anxiety 12/04/21 #6 tabs nicotine (polacrilex) 2 mg gum 2 mg buccal QID PRN Nicotine 12/04/21 Cravings #20 ea Allergies Allergy/AdvReac Type Severity Reaction Status Date / Time lamotrigine [From Lamictal] Allergy Mild RASH Verified 11/30/21 17:10 mushroom Allergy Unknown SWELLING Verified 11/30/21 17:10 divalproex sodium AdvReac Unknown HALLUCINATI Verified 11/30/21 17:[address] [[address] [facility]] ONS Review of Systems Review of Systems: Constitutional : No Fever, No Chills ENT/Mouth : No Ear Pain, No Nasal Congestion, No sore throat Eyes: No Eye Pain, No Swelling, No Redness Cardiovascular : No Chest Pain, No SOB Respiratory : No Cough, No Sputum, No Dyspnea Gastrointestinal : No Nausea, No Vomiting, No Diarrhea, No Hematochezia, No Melena Genitourinary : No Dysuria, No Urinary Frequency, No Hematuria Musculoskeletal : No Myalgias Skin : No Skin Lesions, No rash Neuro : No Weakness, No Numbness, No Paresthesias, No Dizziness, No Headache Psych : positive Anxiety, positive Depression, positive SI/HI Heme/Lymph: No Lymphadenopathy Endocrine : No Polyuria, No Polydipsia Yes all other systems are reviewed and are negative PMFSH Past Medical History Attestation statement: The following information was validated with the patient. Source: old records reviewed Medical History Bipolar I disorder with mixed features Depression Encounter for general adult medical examination with abnormal findings Lumbago Migraine PTSD (post-traumatic stress disorder) Seasonal allergies Suicidal thoughts Vertigo Vitamin D deficiency Family History Family History Father Dementia Mother HTN (hypertension) Hyperlipidemia Migraine Maternal Aunt Bipolar disorder Breast cancer Other Mental health disorder Substance use disorder Social History Social History Household Members: Family Housing: Apartment Do you presently have visiting nurse or other home services: No Alcohol intake: never Patient Tobacco Use Status: Current everyday Tobacco user Tobacco use type: Smokeless Tobacco Cigarettes Per Day: 3 e-Cigarette/Vaping Use: Currently Using Second Hand Smoke Exposure: Yes Use of substances other than those prescribed or required for medical reasons: No Substance Use Type: Marijuana Advance Directives: No Advance Directives Information Provided: No service: No Current occupational status: employed Sexual orientation: Straight/Heterosexual Physical Exam Vital Signs: Vital Signs: Last Vital Signs Temp 97.4 F 01/07/22 16:35 Pulse 85 01/07/22 16:35 Resp 18 01/07/22 16:35 BP 139/81 01/07/22 16:35 Pulse Ox 98 01/07/22 16:35 O2 Del Method 01/07/22 16:35 BMI result Body Mass Index 27.4 Appearance: Alert.?Oriented to person, place and time. No acute distress.?Normal affect. Eyes: Pupils equal, round and reactive to light.? ENT: Pharynx normal.?? Neck: Normal inspection.? Neck supple.?? CVS: Heart sounds normal. Normal heart rate and rhythm.? Pulses normal.?? Respiratory: No respiratory distress.? Lung sounds clear to auscultation bilaterally?? Abdomen: Soft and non-tender. Normoactive bowel sounds.? Skin: Skin warm and dry.? Normal skin color.? Extremities: No lower extremity edema.? Neuro: Moves all extremities spontaneously. Sensation intact bilaterally. CN II- XII intact. No focal neuro deficits. Ambulates with normal steady gait. Course Course Course Narrative: Patient is a 46-year-old female with a past medical history of bipolar disorder, PTSD who presents emergency department today for increasing anxiety, depression, suicidal ideations. She does appear anxious, but is overall well appearing, vital signs are stable, no physical complaints at this time. No apparent distress. Will obtain basic labs, EKG, urinalysis, urine , and drug abuse screen. Patient will be referred to [facility] for further evaluation and treatment recommendations for safe disposition planning. Patient receive additional clonazepam dosage at this time for anxiety. Reevaluation(s) Reevaluation #1: Labs overall unremarkable. No significant findings. Patient is in no apparent distress, respirations are regular even non-labored, speaking clear full sentences. Feels more, after clonazepam. Be placed in physician observation at this time she will require additional time to be evaluated by Behavioral Health team for safe disposition. Time: 17:27 [facility] - Psych Medical Records Attestation: I reviewed the patient's medical records. Lab Data Attestation: I reviewed the patient's lab results. Result diagrams: 01/07/22 16:40 01/07/22 16:40 Labs: Lab Results 01/07/22 01/07/22 01/07/22 Range/Units 16:24 16:24 16:24 WBC (4.8-10.8) X10*3/uL RBC (4.20-5.50) X10*6/uL Hgb (12.0-16.0) g/dl Hct (37.0-47.0) % MCV (80.0-98.0) fL MCH (27.0-33.0) pg MCHC (31.0-35.0) g/dl RDW (11.0-16.0) % Plt Count (160-400) X10*3/uL MPV (9.4-12.3) fL Immature Gran % (Auto) (0.0-0.4) % Neut % (Auto) (45-73) % Lymph % (Auto) (20-40) % [place] % (Auto) (2-11) % Eos % (Auto) (0-4) % Baso % (Auto) (0-2) % Lymph # (Auto) (1.2-4.9) X10*3/uL [place] # (Auto) (0.1-1.2) X10*3/uL Eos # (Auto) (0.0-0.4) X10*3/uL Baso # (Auto) (0.0-0.2) X10*3/uL Abs Immat Gran (auto) (0.00-0.03) X10*3/uL Absolute Neuts (auto) (2.0-8.3) x10*3/uL Absolute Nucleated RBC (0.0-0.012) X10*3/uL Nucleated RBC % (auto) (0.0-0.2) /100WBC Sodium (135-145) mmol/L Potassium (3.3-5.1) mmol/L Chloride (96-108) mmol/L Carbon Dioxide (22-29) mmol/L Anion Gap (12-20) BUN (9-16) mg/dL Creatinine (0.5-1.4) mg/dL Estim Creat Clear Calc Estimated GFR Random Glucose (60-115) mg/dL Calcium (8.4-10.2) mg/dL Total Bilirubin (0.0-1.0) mg/dL AST (5-31) U/L ALT (0-31) U/L Alkaline Phosphatase (39-117) U/L Total Protein (6.5-8.0) g/dL Albumin (3.5-5.0) g/dL Urine Color Yellow Urine Appearance Clear Urine pH 7.5 (5.0-9.0) Ur Specific [place] <= 1.005 (1.005-1.025) Urine Protein Negative (Neg-Trace) mg/dL Urine Glucose (UA) Negative (Negative) mg/dL Urine Ketones Negative (Negative) mg/dL Urine Blood Negative (Negative) Urine Nitrite Negative (Negative) Ur Leukocyte Esterase Negative (Negative) Urine Test NEGATIVE (NEGATIVE) Urine Opiates Screen Not Detected (Not Detect) Urine Fentanyl Screen Not Detected (Not Detect) Ur Barbiturates Screen Not Detected (Not Detect) Ur Phencyclidine Scrn Not Detected (Not Detect) Ur Amphetamines Screen Not Detected (Not Detect) U Benzodiazepines Scrn Not Detected (Not Detect) [place] (0.60-1.20) mmol/L Urine Cocaine Screen Not Detected (Not Detect) U Marijuana (THC) Screen POSITIVE H (Not Detect) Ethyl Alcohol mg/dL COVID-19 ([facility]) (Negative) COVID-19 Clin Com 01/07/22 01/07/22 01/07/22 Range/Units 16:25 16:40 16:40 WBC 10.5 (4.8-10.8) X10*3/uL RBC 4.33 (4.20-5.50) X10*6/uL Hgb 13.0 (12.0-16.0) g/dl Hct 37.6 (37.0-47.0) % MCV 86.8 (80.0-98.0) fL MCH 30.0 (27.0-33.0) pg MCHC 34.6 (31.0-35.0) g/dl RDW 12.7 (11.0-16.0) % Plt Count 381 (160-400) X10*3/uL MPV 9.6 (9.4-12.3) fL Immature Gran % (Auto) 0.4 (0.0-0.4) % Neut % (Auto) 59.8 (45-73) % Lymph % (Auto) 26.2 (20-40) % [place] % (Auto) 8.1 (2-11) % Eos % (Auto) 5.0 H (0-4) % Baso % (Auto) 0.5 (0-2) % Lymph # (Auto) 2.8 (1.2-4.9) X10*3/uL [place] # (Auto) 0.9 (0.1-1.2) X10*3/uL Eos # (Auto) 0.5 H (0.0-0.4) X10*3/uL Baso # (Auto) 0.1 (0.0-0.2) X10*3/uL Abs Immat Gran (auto) 0.04 H (0.00-0.03) X10*3/uL Absolute Neuts (auto) 6.3 (2.0-8.3) x10*3/uL Absolute Nucleated RBC 0.000 (0.0-0.012) X10*3/uL Nucleated RBC % (auto) 0.0 (0.0-0.2) /100WBC Sodium 139 (135-145) mmol/L Potassium 3.8 (3.3-5.1) mmol/L Chloride 104 (96-108) mmol/L Carbon Dioxide 27 (22-29) mmol/L Anion Gap 12 (12-20) BUN 8 L (9-16) mg/dL Creatinine 0.77 (0.5-1.4) mg/dL Estim Creat Clear Calc 91.0 Estimated GFR > 60 Random Glucose 90 (60-115) mg/dL Calcium 9.3 (8.4-10.2) mg/dL Total Bilirubin 0.3 (0.0-1.0) mg/dL AST 16 (5-31) U/L ALT 14 (0-31) U/L Alkaline Phosphatase 65 (39-117) U/L Total Protein 6.6 (6.5-8.0) g/dL Albumin 4.1 (3.5-5.0) g/dL Urine Color Urine Appearance Urine pH (5.0-9.0) Ur Specific [place] (1.005-1.025) Urine Protein (Neg-Trace) mg/dL Urine Glucose (UA) (Negative) mg/dL Urine Ketones (Negative) mg/dL Urine Blood (Negative) Urine Nitrite (Negative) Ur Leukocyte Esterase (Negative) Urine Test (NEGATIVE) Urine Opiates Screen (Not Detect) Urine Fentanyl Screen (Not Detect) Ur Barbiturates Screen (Not Detect) Ur Phencyclidine Scrn (Not Detect) Ur Amphetamines Screen (Not Detect) U Benzodiazepines Scrn (Not Detect) [place] (0.60-1.20) mmol/L Urine Cocaine Screen (Not Detect) U Marijuana (THC) Screen (Not Detect) Ethyl Alcohol < 10 mg/dL COVID-19 ([facility]) Negative (Negative) COVID-19 Clin Com See Note 01/07/22 Range/Units 17:32 WBC (4.8-10.8) X10*3/uL RBC (4.20-5.50) X10*6/uL Hgb (12.0-16.0) g/dl Hct (37.0-47.0) % MCV (80.0-98.0) fL MCH (27.0-33.0) pg MCHC (31.0-35.0) g/dl RDW (11.0-16.0) % Plt Count (160-400) X10*3/uL MPV (9.4-12.3) fL Immature Gran % (Auto) (0.0-0.4) % Neut % (Auto) (45-73) % Lymph % (Auto) (20-40) % [place] % (Auto) (2-11) % Eos % (Auto) (0-4) % Baso % (Auto) (0-2) % Lymph # (Auto) (1.2-4.9) X10*3/uL [place] # (Auto) (0.1-1.2) X10*3/uL Eos # (Auto) (0.0-0.4) X10*3/uL Baso # (Auto) (0.0-0.2) X10*3/uL Abs Immat Gran (auto) (0.00-0.03) X10*3/uL Absolute Neuts (auto) (2.0-8.3) x10*3/uL Absolute Nucleated RBC (0.0-0.012) X10*3/uL Nucleated RBC % (auto) (0.0-0.2) /100WBC Sodium (135-145) mmol/L Potassium (3.3-5.1) mmol/L Chloride (96-108) mmol/L Carbon Dioxide (22-29) mmol/L Anion Gap (12-20) BUN (9-16) mg/dL Creatinine (0.5-1.4) mg/dL Estim Creat Clear Calc Estimated GFR Random Glucose (60-115) mg/dL Calcium (8.4-10.2) mg/dL Total Bilirubin (0.0-1.0) mg/dL AST (5-31) U/L ALT (0-31) U/L Alkaline Phosphatase (39-117) U/L Total Protein (6.5-8.0) g/dL Albumin (3.5-5.0) g/dL Urine Color Urine Appearance Urine pH (5.0-9.0) Ur Specific [place] (1.005-1.025) Urine Protein (Neg-Trace) mg/dL Urine Glucose (UA) (Negative) mg/dL Urine Ketones (Negative) mg/dL Urine Blood (Negative) Urine Nitrite (Negative) Ur Leukocyte Esterase (Negative) Urine Test (NEGATIVE) Urine Opiates Screen (Not Detect) Urine Fentanyl Screen (Not Detect) Ur Barbiturates Screen (Not Detect) Ur Phencyclidine Scrn (Not Detect) Ur Amphetamines Screen (Not Detect) U Benzodiazepines Scrn (Not Detect) [place] 0.48 L (0.60-1.20) mmol/L Urine Cocaine Screen (Not Detect) U Marijuana (THC) Screen (Not Detect) Ethyl Alcohol mg/dL COVID-19 ([facility]) (Negative) COVID-19 Clin Com Discharge Plan Discharge Clinical Impression: Suicidal ideation, Bipolar disorder Patient Disposition: Still a Patient Prescriptions: No Action Nurtec ODT 75 mg tablet,disintegrating 75 mg PO Q OTHER DAY PRN (Reason: migraine headache) 30 Days Qty: 16 3RF Rx Instructions: at onset of migraine (do not take Fioricet for 7 days prior) magnesium oxide 400 mg (241.3 mg magnesium) tablet 400 mg PO DAILY Rx Instructions: may hold for loose stools nicotine (polacrilex) 2 mg Gum 2 mg buccal QID PRN (Reason: Nicotine Cravings) Qty: 20 0RF haloperidol 5 mg Tablet 5 mg PO TID PRN (Reason: agitation, anxiety) Qty: 6 3RF clonazepam 1 mg tablet 1 mg PO BID PRN (Reason: Anxiety) lithium carbonate 300 mg tablet extended release 300 mg PO BID vitamin B complex [B Complex] Capsule 1 cap PO DAILY riboflavin (vitamin B2) 400 mg tablet 400 mg PO DAILY 30 Days Qty: 30 6RF pomzygdodb-xebjowxgotsnb-ghtb 50-325-40 mg capsule 1 cap PO Q4H PRN (Reason: migraine headache) 30 Days Qty: 16 2RF Rx Instructions: One tab at onset of migraine, may repeat in 4 hours (max 2 caps per day or 4 caps per week)
[2022-01-07 17:16] LABS: COVID-19 Test Negative (Negative); IDNOW Serial# 9DB6401D
[2022-01-07] MEDS: clonazePAM 0.5 MG TABLET PO (17:40)
--- NOTE | 2022-01-07 17:53 | PHA.MEDREC ---
Pharmacy Consult ? Medication Reconciliation Pharmacy has completed the medication reconciliation.
[2022-01-07 17:59] LABS: Lithium 0.48 mmol/L (0.60-1.20)
--- NOTE | 2022-01-07 18:56 | PC.NURSE ---
Care Team at pt's bedside for assessment at this time.
--- NOTE | 2022-01-07 18:58 | PC.NURSE ---
per Care Team pt will be voluntary inpatient bed search.
[2022-01-07] MEDS: Lithium Carbonate ER 300 MG TABLET.ER PO (21:14)
[2022-01-08 02:19] VITALS: BP 109/62; PULSE 59; RESP 16; TEMP 36.2; O2SAT 99
--- NOTE | 2022-01-08 05:38 | PC.NURSE ---
Patient slept through the night, no distress observed/reported, medication compliant, behavior non concerning at this time, patient was assessed by care team and disposition is voluntary inpatient bed search, VSS, will continue to monitor.
[2022-01-08] MEDS: clonazePAM 1 MG TABLET PO ×2 (05:44→15:14)
--- NOTE | 2022-01-08 06:16 | PC.NURSE ---
Patient reported feeling anxious/PRN Klonopin 1 mg administered as ordered at 0544 with pending effect
--- NOTE | 2022-01-08 07:04 | PC.NURSE ---
patient appears to remain asleep at present respirations are even and unlabored patient appears in no distress
[2022-01-08 07:58] VITALS: BP 138/85; PULSE 82; RESP 15; TEMP 36.9; O2SAT 99
[2022-01-08] MEDS: Magnesium Oxide 400 MG TABLET PO (07:58)
[2022-01-08] MEDS: Lithium Carbonate ER 300 MG TABLET.ER PO ×2 (07:58→20:19)
[2022-01-08] MEDS: Multivitamin TABLET 1 TAB PO (07:58)
[2022-01-08] MEDS: Nicotine Polacrilex 2 MG GUM BUCCAL ×3 (08:03→18:05)
[2022-01-08] MEDS: Butalb/Acetamin/Caff 50/325/40 TABLET 1 TAB PO (08:04)
[2022-01-08] MEDS: HaloperidoL 5 MG TABLET PO ×2 (11:42→18:05)
--- NOTE | 2022-01-08 18:36 | PC.NURSE ---
M3 Rn down to POD to receive pt. admitting orders not finalized at the time as pts COVID test had last been done 25 hours prior (test within 24 hrs required to admit), requiring a new test to be completed before pt can be admitted. pt became increasingly anxious, tearful and pacing with pressure speech. pt concerned that she will miss dinner and not be brought upstairs this evening. attempted verbal reassurance with some good effect, pt requesting PRN Haldol and nicorette gum for additional benefit. pt medicated per JUN. at this time, COVID test pending, pt in room eating dinner.
[2022-01-08 18:44] LABS: COVID-19 Test Negative (Negative)
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
[2022-01-09] MEDS: Butalb/Acetamin/Caff 50/325/40 TABLET 1 TAB PO ×3 (00:25→20:30)
[2022-01-09 01:00] VITALS: BP 135/77; PULSE 72; RESP 18; TEMP 36.6; O2SAT 100
[2022-01-09] MEDS: clonazePAM 1 MG TABLET PO ×3 (02:40→20:30)
[2022-01-09] MEDS: hydrOXYzine HCL 25 MG TABLET PO ×3 (02:40→18:22)
--- NOTE | 2022-01-09 03:34 | PC.ADMIT ---
Pt is a 46yoF who presented to [facility] for suicidal ideation in the setting of bipolar depression. Pt was discharged from in early November after a manic episode and feels she should not have left so soon. She reports being med compliant since d/c but fell into a deep depression . She endorses having passive SI prior to admission, no plan or intent, but obsessive, racing thoughts about ending her life. Occasionally hears AH of muffled voices and VH/visual disturbances such as depth perception being impaired and things looking distorted. Pt denies current SI/HI. Pt endorses insomnia, decreased appetite, and recentSIB by hitting herself when feeling overwhelmed. She denies etoh and illicit drug use, endorses medical marijuana use most days, and smokes 10 cigarettes daily, does not want nicotine patch but will use gum. Migraines managed with Fioricet. Pt cooperative with intake process and paperwork.
--- NOTE | 2022-01-09 04:20 | PC.ADMIT ---
Pt is a 46yoF who presented to [facility] for suicidal ideation in the setting of bipolar depression. Pt was discharged from in early November after a manic episode and feels she should not have left so soon. She reports being med compliant since d/c but fell into a deep depression . She endorses having passive SI prior to admission, no plan or intent, but obsessive, racing thoughts about ending her life. Occasionally hears AH of muffled voices and VH/visual disturbances such as depth perception being impaired and things looking distorted. Pt denies current SI/HI. Pt endorses insomnia, decreased appetite, and recentSIB by hitting herself when feeling overwhelmed. She denies etoh and illicit drug use, endorses marijuana use most days, and smokes 10 cigarettes daily, does not want nicotine patch but will use gum. Migraines managed with Fioricet. Pt cooperative with intake process and paperwork.
[2022-01-09 06:00] VITALS: BP 143/80; PULSE 77; RESP 16; TEMP 36.7; O2SAT 98
[2022-01-09] MEDS: Multivitamin TABLET 1 TAB PO (08:34)
[2022-01-09] MEDS: Lithium Carbonate ER 300 MG TABLET.ER PO ×2 (08:34→20:30)
[2022-01-09] MEDS: Magnesium Oxide 400 MG TABLET PO (08:34)
[2022-01-09 09:10] LABS: Cholesterol 179 mg/dL; HDL Cholesterol 49 mg/dL; LDL Cholesterol Calculated 109 mg/dl; Triglycerides 108 mg/dL
[2022-01-09 09:19] LABS: Estimated Average Glucose 88 mg/dL; Hemoglobin A1c % 4.7 %
[2022-01-09 09:34] LABS: Free T4 (Free Thyroxine) 1.16 ng/dL (0.71-1.85); Thyroid Stimulating Hormone 0.64 uIU/mL (0.32-4.0)
[2022-01-09] MEDS: Nicotine Polacrilex 2 MG GUM BUCCAL ×2 (09:35→18:22)
[2022-01-09] MEDS: HaloperidoL 5 MG TABLET PO ×2 (10:39→16:03)
[2022-01-09] MEDS: Lurasidone HCl 20 MG TABLET PO (14:46)
[2022-01-09 16:11] LABS: Folate 19.8 ng/mL (> or = 4.0); Vitamin B12 368 pg/mL (200-900)
--- NOTE | 2022-01-09 16:53 | HO.PSYCHPN ---
Subjective Subjective Date of Service: 01/09/22 Reason For Visit: self harm ,suicidal Subjective Notes: Conditional Voluntary Interim History: pt depressed anxious feel overwhelmed with intermittant si PI Medication Compliance: Yes Mental Status Exam Mental Status Exam Patient Appearance: Well Grooomed Level of Consciousness: Awake Patient Behavior: Appropriate Mood Description: Depressed and Apprehensive Affect Description: Constricted and Anxious Ability to Follow Directions: Good Memory Description: Intact Hallucinations: Auditory Delusions: Paranoid Ideation Thought Content: positive for Preoccupation and positive for Suicidal Ideation Depressive Symptoms: Thoughts of /Suicide, Loss of Energy and Difficulty Concentrating Diagnostics Vital Signs (24Hr): Vital Signs - 24 hr 01/09/22 01:00 01/09/22 06:00 Temperature 97.8 F 98.1 F Pulse Rate 72 77 Respiratory Rate 18 16 Blood Pressure 135/77 143/80 H Pulse Oximetry 100 98 Oxygen Delivery Method Room Air Room Air BMI result Body Mass Index 27.4 Labs Results: 01/07/22 16:40 01/07/22 16:40 Labs: Laboratory Results - last 48 hr 01/07/22 01/07/22 01/07/22 16:24 16:24 16:25 Sodium Potassium Chloride Carbon Dioxide Anion Gap BUN Creatinine Estim Creat Clear Calc Estimated GFR Random Glucose Estimat Average Glucose Hemoglobin A1c % Calcium Magnesium Total Bilirubin AST ALT Alkaline Phosphatase Total Protein Albumin Triglycerides Cholesterol LDL Cholesterol, Calc HDL Cholesterol Vitamin B12 Folate TSH Free T4 Urine Color Yellow Urine Appearance Clear Urine pH 7.5 Ur Specific [place] <= 1.005 Urine Protein Negative Urine Glucose (UA) Negative Urine Ketones Negative Urine Blood Negative Urine Nitrite Negative Ur Leukocyte Esterase Negative Urine Opiates Screen Not Detected Urine Fentanyl Screen Not Detected Ur Barbiturates Screen Not Detected Ur Phencyclidine Scrn Not Detected Ur Amphetamines Screen Not Detected U Benzodiazepines Scrn Not Detected [place] Urine Cocaine Screen Not Detected U Marijuana (THC) Screen POSITIVE H Ethyl Alcohol COVID-19 ([facility]) Negative COVID-19 Clin Com See Note 01/07/22 01/07/22 01/08/22 16:40 17:32 18:06 Sodium 139 Potassium 3.8 Chloride 104 Carbon Dioxide 27 Anion Gap 12 BUN 8 L Creatinine 0.77 Estim Creat Clear Calc 91.0 Estimated GFR > 60 Random Glucose 90 Estimat Average Glucose Hemoglobin A1c % Calcium 9.3 Magnesium Total Bilirubin 0.3 AST 16 ALT 14 Alkaline Phosphatase 65 Total Protein 6.6 Albumin 4.1 Triglycerides Cholesterol LDL Cholesterol, Calc HDL Cholesterol Vitamin B12 Folate TSH Free T4 Urine Color Urine Appearance Urine pH Ur Specific [place] Urine Protein Urine Glucose (UA) Urine Ketones Urine Blood Urine Nitrite Ur Leukocyte Esterase Urine Opiates Screen Urine Fentanyl Screen Ur Barbiturates Screen Ur Phencyclidine Scrn Ur Amphetamines Screen U Benzodiazepines Scrn [place] 0.48 L Urine Cocaine Screen U Marijuana (THC) Screen Ethyl Alcohol < 10 COVID-19 ([facility]) Negative COVID-19 Clin Com See Note 01/09/22 01/09/22 01/09/22 08:22 08:22 08:22 Sodium Potassium Chloride Carbon Dioxide Anion Gap BUN Creatinine Estim Creat Clear Calc Estimated GFR Random Glucose Estimat Average Glucose 88 Hemoglobin A1c % 4.7 Calcium Magnesium 2.0 Total Bilirubin AST ALT Alkaline Phosphatase Total Protein Albumin Triglycerides 108 Cholesterol 179 LDL Cholesterol, Calc 109 HDL Cholesterol 49 Vitamin B12 368 Folate 19.8 TSH 0.64 Free T4 1.16 Urine Color Urine Appearance Urine pH Ur Specific [place] Urine Protein Urine Glucose (UA) Urine Ketones Urine Blood Urine Nitrite Ur Leukocyte Esterase Urine Opiates Screen Urine Fentanyl Screen Ur Barbiturates Screen Ur Phencyclidine Scrn Ur Amphetamines Screen U Benzodiazepines Scrn [place] Urine Cocaine Screen U Marijuana (THC) Screen Ethyl Alcohol COVID-19 ([facility]) COVID-19 Clin Com Medications Medications Current Medications Acetaminophen (Acetaminophen 325 Mg Tablet) 650 mg PO Q6H PRN PRN Reason: Headache/Pain Mild Scale (1-3) Acetaminophen/Butalbital/Caffeine (Butalb/Acetamin/Caff 50/325/40 Tablet) 1 tab PO Q4H PRN PRN Reason: migraine headache Last Admin: 01/09/22 11:59 Dose: 1 tab Al Hydroxide/Mg Hydroxide (Magnesium Hydrox/Alum Hydrox 30 Ml Oral.Susp) 30 ml PO Q6H PRN PRN Reason: Heartburn/Nausea Clonazepam (Clonazepam 1 Mg Tablet) 1 mg PO BID DHIRAJ Haloperidol (Haloperidol 5 Mg Tablet) 5 mg PO TID PRN PRN Reason: agitation, anxiety Last Admin: 01/09/22 16:03 Dose: 5 mg Hydroxyzine HCl (Hydroxyzine Hcl 25 Mg Tablet) 25 mg PO Q6H PRN PRN Reason: Anxiety Last Admin: 01/09/22 10:39 Dose: 25 mg [place] Carbonate ([place] Carbonate Er 300 Mg Tablet.Er) 300 mg PO BID [facility] Last Admin: 01/09/22 08:34 Dose: 300 mg Lurasidone HCl (Lurasidone Hcl 20 Mg Tablet) 20 mg PO DAILY [facility] Last Admin: 01/09/22 14:46 Dose: 20 mg Magnesium Hydroxide (Milk Of Magnesia 30 Ml Oral.Susp) 30 ml PO DAILY PRN PRN Reason: Constipation Magnesium Oxide (Magnesium Oxide 400 Mg Tablet) 400 mg PO DAILY [facility] Last Admin: 01/09/22 08:34 Dose: 400 mg Multivitamins/Vitamin C (Multivitamin Tablet) 1 tab PO DAILY [facility] Last Admin: 01/09/22 08:34 Dose: 1 tab Nicotine Polacrilex (Nicotine Polacrilex 2 Mg Gum) 2 mg BUCCAL QID PRN PRN Reason: Nicotine Cravings Last Admin: 01/09/22 09:35 Dose: 2 mg Pharmacy Consult (Consult Rx Perform Med Rec) 1 each MISCELLANE ONCE PRN PRN Reason: Consult order Trazodone HCl (Trazodone Hcl 50 Mg Tablet) 50 mg PO BEDTIME PRN PRN Reason: Insomnia Allergies Allergies Allergy/AdvReac Type Severity Reaction Status Date / Time lamotrigine [From Lamictal] Allergy Mild RASH Verified 11/30/21 17:10 mushroom Allergy Unknown SWELLING Verified 11/30/21 17:10 divalproex sodium AdvReac Unknown HALLUCINATI Verified 11/30/21 17:10 [From DEPAKOTE] ONS Assessment & Plan Assessment & Plan (1) Bipolar I disorder with mixed features: Status: Acute Code(s): F31.9 - Bipolar disorder, unspecified (2) PTSD (post-traumatic stress disorder): Status: Acute Code(s): F43.10 - Post-traumatic stress disorder, unspecified Plan Deepika is a 46 y.o. Female who carries a dx of bipolar I DO with psychotic features, PTSD, and cannabis use disorder. Has hx of migraine headaches, fibro. Long hx of psych inpatient admissions, including on M5, for depression, mood lability, agitation, and SI with hx of SA by ODing on her psych medications. Utox only positive for cannabis, denies alcohol abuse. Multiple psychosocial stressors. Family has DCF involvement. Hx of DMH involvement. Hx of ECT. Plan: Consider increasing lithium, as Li level is 0.48, and pt has reported past benefit on this medication. Continue assessment, engagement. Q15 min safety checks, CV Monitor response to medications. Monitor for safety in the milieu. Discharge on stabilization. Patient seen. Chart reviewed. Discussed with team. Obtain collateral contact info as needed 01/09/22 start latuda bipolar depression has problematic relationship with spouse I spent minutes with the patient and/or on the patient floor today, greater than?50% of which was spent counseling/coordinating care. Reason for contiued inpatient stay Substantial Risk for: harm to self
[2022-01-09 20:20] VITALS: BP 123/81; PULSE 76; RESP 16; TEMP 36.6; O2SAT 99
[2022-01-10] MEDS: traZODone HCL 50 MG TABLET PO ×3 (02:35→22:55)
[2022-01-10] MEDS: clonazePAM 1 MG TABLET PO ×2 (07:39→20:02)
[2022-01-10] MEDS: Lithium Carbonate ER 300 MG TABLET.ER PO ×2 (07:39→20:02)
[2022-01-10] MEDS: Magnesium Oxide 400 MG TABLET PO (07:39)
[2022-01-10] MEDS: Multivitamin TABLET 1 TAB PO (07:39)
[2022-01-10 08:50] VITALS: BP 123/76; PULSE 73; RESP 18; TEMP 36.2; O2SAT 100
[2022-01-10] MEDS: Lurasidone HCl 20 MG TABLET PO (09:01)
[2022-01-10] MEDS: Nicotine Polacrilex 2 MG GUM BUCCAL ×3 (10:54→20:31)
[2022-01-10] MEDS: hydrOXYzine HCL 25 MG TABLET PO ×2 (12:32→22:37)
[2022-01-10] MEDS: Butalb/Acetamin/Caff 50/325/40 TABLET 1 TAB PO (16:21)
[2022-01-10 20:00] VITALS: BP 156/88; PULSE 76; RESP 18; TEMP 35.9; O2SAT 100
[2022-01-10] MEDS: HaloperidoL 5 MG TABLET PO (22:04)
--- NOTE | 2022-01-10 23:52 | P.PNPSI_ITS ---
Subjective Subjective Date of Service: 01/10/22 Reason For Visit: self harm ,suicidal Subjective Notes: Conditional Voluntary Interim History: Patient seen in psychiatric follow-up patient remains quite depressed anxious ruminating Latuda started Medication Compliance: Yes Mental Status Exam Mental Status Exam Patient Appearance: Well Grooomed Level of Consciousness: Awake Patient Behavior: Appropriate Mood Description: Depressed and Apprehensive Affect Description: Constricted and Anxious Ability to Follow Directions: Good Memory Description: Intact Hallucinations: Auditory Delusions: Paranoid Ideation Thought Content: positive for Preoccupation and positive for Suicidal Ideation Depressive Symptoms: Thoughts of /Suicide, Loss of Energy and Difficulty Concentrating Diagnostics Vital Signs (24Hr): Vital Signs - 24 hr 01/10/22 08:50 01/10/22 20:00 Temperature 97.2 F 96.7 F L Pulse Rate 73 76 Respiratory Rate 18 18 Blood Pressure 123/76 156/88 H Pulse Oximetry 100 100 Oxygen Delivery Method Room Air Room Air BMI result Body Mass Index 27.4 Labs Results: 01/07/22 16:40 01/07/22 16:40 Labs: Laboratory Results - last 48 hr 01/09/22 01/09/22 01/09/22 08:22 08:22 08:22 Estimat Average Glucose 88 Hemoglobin A1c % 4.7 Magnesium 2.0 Triglycerides 108 Cholesterol 179 LDL Cholesterol, Calc 109 HDL Cholesterol 49 Vitamin B12 368 Folate 19.8 TSH 0.64 Free T4 1.16 Medications Medications Current Medications Acetaminophen (Acetaminophen 325 Mg Tablet) 650 mg PO Q6H PRN PRN Reason: Headache/Pain Mild Scale (1-3) Acetaminophen/Butalbital/Caffeine (Butalb/Acetamin/Caff 50/325/40 Tablet) 1 tab PO Q4H PRN PRN Reason: migraine headache Last Admin: 01/10/22 16:21 Dose: 1 tab Al Hydroxide/Mg Hydroxide (Magnesium Hydrox/Alum Hydrox 30 Ml Oral.Susp) 30 ml PO Q6H PRN PRN Reason: Heartburn/Nausea Clonazepam (Clonazepam 1 Mg Tablet) 1 mg PO BID DHIRAJ Last Admin: 01/10/22 20:02 Dose: 1 mg Haloperidol (Haloperidol 5 Mg Tablet) 5 mg PO TID PRN PRN Reason: agitation, anxiety Last Admin: 01/10/22 22:04 Dose: 5 mg Hydroxyzine HCl (Hydroxyzine Hcl 25 Mg Tablet) 25 mg PO Q6H PRN PRN Reason: Anxiety Last Admin: 01/10/22 22:37 Dose: 25 mg [place] Carbonate ([place] Carbonate Er 300 Mg Tablet.Er) 300 mg PO BID [facility] Last Admin: 01/10/22 20:02 Dose: 300 mg Lurasidone HCl (Lurasidone Hcl 20 Mg Tablet) 20 mg PO DAILY [facility] Last Admin: 01/10/22 09:01 Dose: 20 mg Magnesium Hydroxide (Milk Of Magnesia 30 Ml Oral.Susp) 30 ml PO DAILY PRN PRN Reason: Constipation Magnesium Oxide (Magnesium Oxide 400 Mg Tablet) 400 mg PO DAILY [facility] Last Admin: 01/10/22 07:39 Dose: 400 mg Multivitamins/Vitamin C (Multivitamin Tablet) 1 tab PO DAILY [facility] Last Admin: 01/10/22 07:39 Dose: 1 tab Nicotine Polacrilex (Nicotine Polacrilex 2 Mg Gum) 2 mg BUCCAL Q2H PRN PRN Reason: Nicotine Cravings Last Admin: 01/10/22 20:31 Dose: 2 mg Pharmacy Consult (Consult Rx Perform Med Rec) 1 each MISCELLANE ONCE PRN PRN Reason: Consult order Trazodone HCl (Trazodone Hcl 50 Mg Tablet) 50 mg PO BEDTIME PRN PRN Reason: Insomnia Last Admin: 01/10/22 22:55 Dose: 50 mg Allergies Allergies Allergy/AdvReac Type Severity Reaction Status Date / Time lamotrigine [From Lamictal] Allergy Mild RASH Verified 11/30/21 17:10 mushroom Allergy Unknown SWELLING Verified 11/30/21 17:10 divalproex sodium AdvReac Unknown HALLUCINATI Verified 11/30/21 17:10 [From DEPAKOTE] ONS Assessment & Plan Assessment & Plan (1) Bipolar I disorder with mixed features: Status: Acute Code(s): F31.9 - Bipolar disorder, unspecified (2) PTSD (post-traumatic stress disorder): Status: Acute Code(s): F43.10 - Post-traumatic stress disorder, unspecified Plan Deepika is a 46 y.o. Female who carries a dx of bipolar I DO with psychotic f eatures, PTSD, and cannabis use disorder. Has hx of migraine headaches, fibro. Long hx of psych inpatient admissions, including on M5, for depression, mood lability, agitation, and SI with hx of SA by ODing on her psych medications. Utox only positive for cannabis, denies alcohol abuse. Multiple psychosocial stressors. Family has DCF involvement. Hx of DMH involvement. Hx of ECT. Plan: Consider increasing lithium, as Li level is 0.48, and pt has reported past benefit on this medication. Continue assessment, engagement. Q15 min safety checks, CV Monitor response to medications. Monitor for safety in the milieu. Discharge on stabilization. Patient seen. Chart reviewed. Discussed with team. Obtain collateral contact info as needed 01/10/2022 Patient seen in psychiatric follow-up continue Latuda monitor safety I spent minutes with the patient and/or on the patient floor today, greater than?50% of which was spent counseling/coordinating care. Reason for contiued inpatient stay Substantial Risk for: harm to self
[2022-01-11] MEDS: QUEtiapine Fumarate 25 MG TABLET PO (00:17)
[2022-01-11] MEDS: diphenhydrAMINE HCL 25 MG TABLET PO (00:33)
[2022-01-11] MEDS: Lithium Carbonate ER 300 MG TABLET.ER PO ×2 (08:27→20:20)
[2022-01-11] MEDS: Lurasidone HCl 20 MG TABLET PO (08:27)
[2022-01-11] MEDS: Multivitamin TABLET 1 TAB PO (08:27)
[2022-01-11] MEDS: Magnesium Oxide 400 MG TABLET PO (08:28)
[2022-01-11] MEDS: clonazePAM 1 MG TABLET PO ×2 (08:28→20:19)
[2022-01-11] MEDS: Nicotine Polacrilex 2 MG GUM BUCCAL ×2 (08:28→15:54)
[2022-01-11 08:30] VITALS: BP 121/58; PULSE 68; RESP 18; TEMP 36.8; O2SAT 98
--- NOTE | 2022-01-11 09:11 | HO.PSYCHPN ---
Subjective Subjective Date of Service: 01/11/22 Reason For Visit: self harm ,suicidal Subjective Notes: Conditional Voluntary Interim History: Nitesh reports that mood is better in that she is less depressed, no SI/HI. She had some difficulty sleeping last night. She received Haldol which she reports has caused tension of muscles upper bilat arms and face- seems like dystonia, she also reports feeling restless afterwards but it seems it is in response to dystonia although could be combination of akathisia. She reports trazodone does work for her for sleep. No side effects with latuda. Medication Compliance: Yes Side effects from medications: No Attending Groups: Yes Review of Systems Review of Systems CVS: No c/o chest pain, palpitations, no SOB NC MANAGER: No c/o dizziness, headache GI: No c/o Nausea, Vomiting, diarrhea, constipation or heartburn Yes all other systems are reviewed and are negative Mental Status Exam Mental Status Exam Narrative: A&O. hygiene improved, casually groomed, dyed hair, normal body habitus, laying down in bed. Good eye contact, inattentive. No Tics or Tremors. No abnormal involuntary movements. Cooperative, able to engage in conversation without agitation. Non-pressured speech, spontaneous with regular rate and rhythm, normal vocal volume. No prolonged speech latency or dysarthria. Mood is better , affect is congruent, brightens at time. Denies SI. Denies SIB/HI upon inquiry. Denies A/VH or delusional thought content. Cognitive grossly intact to conversational testing but not formally tested. Insight/ Judgment x fair x 2. Diagnostics Vital Signs (24Hr): Vital Signs - 24 hr 01/11/22 21:12 Pulse Rate 76 Respiratory Rate 18 Blood Pressure 141/81 H Pulse Oximetry 100 Oxygen Delivery Method Room Air BMI result Body Mass Index 27.4 Labs Results: 01/07/22 16:40 01/07/22 16:40 Medications Medications Current Medications Acetaminophen (Acetaminophen 325 Mg Tablet) 650 mg PO Q6H PRN PRN Reason: Headache/Pain Mild Scale (1-3) Acetaminophen/Butalbital/Caffeine (Butalb/Acetamin/Caff 50/325/40 Tablet) 1 tab PO Q4H PRN PRN Reason: migraine headache Last Admin: 01/11/22 12:48 Dose: 1 tab Al Hydroxide/Mg Hydroxide (Magnesium Hydrox/Alum Hydrox 30 Ml Oral.Susp) 30 ml PO Q6H PRN PRN Reason: Heartburn/Nausea Clonazepam (Clonazepam 1 Mg Tablet) 1 mg PO BID [facility] Last Admin: 01/12/22 08:56 Dose: 1 mg Haloperidol (Haloperidol 5 Mg Tablet) 5 mg PO TID PRN PRN Reason: agitation, anxiety Last Admin: 01/10/22 22:04 Dose: 5 mg Hydroxyzine HCl (Hydroxyzine Hcl 25 Mg Tablet) 25 mg PO Q6H PRN PRN Reason: Anxiety Last Admin: 01/12/22 02:00 Dose: 25 mg [place] Carbonate ([place] Carbonate Er 300 Mg Tablet.Er) 300 mg PO BID [facility] Last Admin: 01/12/22 08:56 Dose: 300 mg Lurasidone HCl (Lurasidone Hcl 20 Mg Tablet) 20 mg PO DAILY [facility] Last Admin: 01/12/22 08:56 Dose: 20 mg Magnesium Hydroxide (Milk Of Magnesia 30 Ml Oral.Susp) 30 ml PO DAILY PRN PRN Reason: Constipation Last Admin: 01/11/22 10:42 Dose: 30 ml Magnesium Oxide (Magnesium Oxide 400 Mg Tablet) 400 mg PO DAILY [facility] Last Admin: 01/12/22 08:57 Dose: 400 mg Multivitamins/Vitamin C (Multivitamin Tablet) 1 tab PO DAILY [facility] Last Admin: 01/12/22 08:57 Dose: 1 tab Nicotine Polacrilex (Nicotine Polacrilex 2 Mg Gum) 2 mg BUCCAL Q2H PRN PRN Reason: Nicotine Cravings Last Admin: 01/11/22 15:54 Dose: 2 mg Pharmacy Consult (Consult Rx Perform Med Rec) 1 each MISCELLANE ONCE PRN PRN Reason: Consult order Trazodone HCl (Trazodone Hcl 50 Mg Tablet) 50 mg PO BEDTIME PRN PRN Reason: Insomnia Last Admin: 01/12/22 02:00 Dose: 50 mg Allergies Allergies Allergy/AdvReac Type Severity Reaction Status Date / Time lamotrigine [From Lamictal] Allergy Mild RASH Verified 11/30/21 17:10 mushroom Allergy Unknown SWELLING Verified 11/30/21 17:10 divalproex sodium AdvReac Unknown HALLUCINATI Verified 11/30/21 17:10 [From DEPAKOTE] ONS Assessment & Plan Assessment & Plan (1) Bipolar I disorder with mixed features: Status: Acute Code(s): F31.9 - Bipolar disorder, unspecified (2) PTSD (post-traumatic stress disorder): Status: Acute Code(s): F43.10 - Post-traumatic stress disorder, unspecified Plan Deepika is a 46 y.o. Female who carries a dx of bipolar I DO with psychotic features, PTSD, and cannabis use disorder. Has hx of migraine headaches, fibro. Long hx of psych inpatient admissions, including on M5, for depression, mood lability, agitation, and SI with hx of SA by ODing on her psych medications. Utox only positive for cannabis, denies alcohol abuse. Multiple psychosocial stressors. Family has DCF involvement. Hx of [facility] involvement. Hx of ECT. Plan: Consider increasing lithium, as Li level is 0.48, and pt has reported past benefit on this medication. Continue assessment, engagement. Q15 min safety checks, CV Monitor response to medications. Monitor for safety in the milieu. Discharge on stabilization. Patient seen. Chart reviewed. Discussed with team. Obtain collateral contact info as needed 01/10/2022 Patient seen in psychiatric follow-up continue Latuda monitor safety 01/11- increase latuda to 40mg po dinner, d/c haldol I spent minutes with the patient and/or on the patient floor today, greater than?50% of which was spent counseling/coordinating care. Reason for contiued inpatient stay Substantial Risk for: stable for discharge
[2022-01-11] MEDS: Milk of Magnesia 30 ML ORAL.SUSP PO (10:42)
[2022-01-11] MEDS: Butalb/Acetamin/Caff 50/325/40 TABLET 1 TAB PO (12:48)
--- NOTE | 2022-01-11 14:59 | MHC.CLN ---
NUTRITION CONSULT FOR RECENT DECREASED APPETITE. VISITED WITH PATIENT IN HER ROOM. STATED THAT SHE IS EATING WELL HERE. SHE STATED HER GOAL IS TO EAT AT LEAST 75% OF MEALS. DIET=REGULAR. NO ADDITIONAL NUTRITION INTERVENTIONS AT THIS TIME.
[2022-01-11] MEDS: traZODone HCL 50 MG TABLET PO (20:20)
[2022-01-11 21:12] VITALS: BP 141/81; PULSE 76; RESP 18; O2SAT 100
[2022-01-12] MEDS: traZODone HCL 50 MG TABLET PO (02:00)
[2022-01-12] MEDS: hydrOXYzine HCL 25 MG TABLET PO (02:00)
[2022-01-12 08:50] VITALS: BP 125/81; PULSE 66; RESP 18; TEMP 36.6; O2SAT 99
[2022-01-12] MEDS: clonazePAM 1 MG TABLET PO ×2 (08:56→20:27)
[2022-01-12] MEDS: Lurasidone HCl 20 MG TABLET PO (08:56)
[2022-01-12] MEDS: Lithium Carbonate ER 300 MG TABLET.ER PO ×2 (08:56→20:27)
[2022-01-12] MEDS: Multivitamin TABLET 1 TAB PO (08:57)
[2022-01-12] MEDS: Magnesium Oxide 400 MG TABLET PO (08:57)
[2022-01-12] MEDS: Nicotine Polacrilex 2 MG GUM BUCCAL ×2 (11:47→17:06)
[2022-01-12] MEDS: polyethylene glycoL 3350 17 GM POWD.PACK PO (12:58)
[2022-01-12] MEDS: Butalb/Acetamin/Caff 50/325/40 TABLET 1 TAB PO (14:48)
[2022-01-12 20:15] VITALS: BP 121/81; PULSE 82; RESP 16; TEMP 36.9; O2SAT 100
[2022-01-12] MEDS: traZODone HCL 100 MG TABLET PO (20:27)
[2022-01-13] MEDS: traZODone HCL 100 MG TABLET PO (02:20)
[2022-01-13] MEDS: LORazepam 1 MG TABLET PO (03:14)
[2022-01-13 08:50] VITALS: BP 141/76; PULSE 80; RESP 18; TEMP 36.7; O2SAT 98
[2022-01-13] MEDS: Magnesium Oxide 400 MG TABLET PO (09:00)
[2022-01-13] MEDS: clonazePAM 1 MG TABLET PO (09:00)
[2022-01-13] MEDS: Lithium Carbonate ER 300 MG TABLET.ER PO (09:00)
[2022-01-13] MEDS: polyethylene glycoL 3350 17 GM POWD.PACK PO (09:01)
[2022-01-13] MEDS: Multivitamin TABLET 1 TAB PO (09:01)
--- NOTE | 2022-01-13 13:17 | PM.PSYDC ---
DS: Providers Provider Date of Service: 01/13/22 Date of admission: 01/08/22 17:58 Primary care physician: Jessica Bishop MD DS: Diagnosis Discharge Diagnosis (1) Bipolar I disorder with mixed features: Status: Acute (2) PTSD (post-traumatic stress disorder): Status: Deleted DS: Medications Discharge Medications Home Medications: Home Medications Medication Instructions Recorded Confirmed magnesium oxide 400 mg (241.3 mg 400 mg PO DAILY 11/30/21 01/07/22 magnesium) tablet clonazepam 1 mg tablet 1 mg PO BID PRN Anxiety 01/07/22 01/07/22 vitamin B complex 1 cap PO DAILY 01/07/22 01/07/22 Previous Rx's Medication Instructions Recorded dzwknjvoqt-[id number] 1 cap PO Q4H PRN migraine headache 10/27/21 50 mg-325 mg-40 mg capsule 30 days #16 caps riboflavin (vitamin B2) 400 mg 400 mg PO DAILY 30 days #30 tabs 10/27/21 tablet rimegepant 75 mg disintegrating 75 mg PO Q OTHER DAY PRN migraine 11/26/21 tablet (Nurtec ODT) headache 30 days #16 tabs lithium carbonate 300 mg 300 mg PO BID #60 tabs 01/13/22 tablet,extended release lurasidone 40 mg tablet (Latuda) 40 mg PO DAILY@1700 #30 tabs 01/13/22 nicotine (polacrilex) 2 mg gum 2 mg buccal Q2H PRN Nicotine 01/13/22 Cravings #90 ea polyethylene glycol 3350 17 gram 17 g PO DAILY #30 ea 01/13/22 oral powder packet trazodone 100 mg tablet 100 mg PO BEDTIME PRN Insomnia #30 01/13/22 tabs Mental Status Exam Mental Status Exam Narrative: A&O. hygiene improved, casually groomed, dyed hair, normal body habitus, laying down in bed. Good eye contact, inattentive. No Tics or Tremors. No abnormal involuntary movements. Cooperative, able to engage in conversation without agitation. Non-pressured speech, spontaneous with regular rate and rhythm, normal vocal volume. No prolonged speech latency or dysarthria. Mood is better , affect is congruent, brightens at time. Denies SI. Denies SIB/HI upon inquiry. Denies A/VH or delusional thought content. Cognitive grossly intact to conversational testing but not formally tested. Insight/ Judgment x fair x 2. Data Data Completed and Pending Completed studies during hospitalization [Text1]: 01/07/22 01/07/22 01/07/22 16:24 16:24 16:24 WBC RBC Hgb Hct MCV MCH MCHC RDW Plt Count MPV Immature Gran % (Auto) Neut % (Auto) Lymph % (Auto) [place] % (Auto) Eos % (Auto) Baso % (Auto) Lymph # (Auto) [place] # (Auto) Eos # (Auto) Baso # (Auto) Abs Immat Gran (auto) Absolute Neuts (auto) Absolute Nucleated RBC Nucleated RBC % (auto) Sodium Potassium Chloride Carbon Dioxide Anion Gap BUN Creatinine Estim Creat Clear Calc Estimated GFR Random Glucose Estimat Average Glucose Hemoglobin A1c % Calcium Magnesium Total Bilirubin AST ALT Alkaline Phosphatase Total Protein Albumin Triglycerides Cholesterol LDL Cholesterol, Calc HDL Cholesterol Vitamin B12 Folate TSH Free T4 Urine Color Yellow Urine Appearance Clear Urine pH 7.5 Ur Specific [place] <= 1.005 Urine Protein Negative Urine Glucose (UA) Negative Urine Ketones Negative Urine Blood Negative Urine Nitrite Negative Ur Leukocyte Esterase Negative Urine Test NEGATIVE Urine Opiates Screen Not Detected Urine Fentanyl Screen Not Detected Ur Barbiturates Screen Not Detected Ur Phencyclidine Scrn Not Detected Ur Amphetamines Screen Not Detected U Benzodiazepines Scrn Not Detected Indios Urine Cocaine Screen Not Detected U Marijuana (THC) Screen POSITIVE H Ethyl Alcohol COVID-19 ([facility]) COVID-19 Clin Com 01/07/22 01/07/22 01/07/22 16:25 16:40 16:40 WBC 10.5 RBC 4.33 Hgb 13.0 Hct 37.6 MCV 86.8 MCH 30.0 MCHC 34.6 RDW 12.7 Plt Count 381 MPV 9.6 Immature Gran % (Auto) 0.4 Neut % (Auto) 59.8 Lymph % (Auto) 26.2 [place] % (Auto) 8.1 Eos % (Auto) 5.0 H Baso % (Auto) 0.5 Lymph # (Auto) 2.8 [place] # (Auto) 0.9 Eos # (Auto) 0.5 H Baso # (Auto) 0.1 Abs Immat Gran (auto) 0.04 H Absolute Neuts (auto) 6.3 Absolute Nucleated RBC 0.000 Nucleated RBC % (auto) 0.0 Sodium 139 Potassium 3.8 Chloride 104 Carbon Dioxide 27 Anion Gap 12 BUN 8 L Creatinine 0.77 Estim Creat Clear Calc 91.0 Estimated GFR > 60 Random Glucose 90 Estimat Average Glucose Hemoglobin A1c % Calcium 9.3 Magnesium Total Bilirubin 0.3 AST 16 ALT 14 Alkaline Phosphatase 65 Total Protein 6.6 Albumin 4.1 Triglycerides Cholesterol LDL Cholesterol, Calc HDL Cholesterol Vitamin B12 Folate TSH Free T4 Urine Color Urine Appearance Urine pH Ur Specific [place] Urine Protein Urine Glucose (UA) Urine Ketones Urine Blood Urine Nitrite Ur Leukocyte Esterase Urine Test Urine Opiates Screen Urine Fentanyl Screen Ur Barbiturates Screen Ur Phencyclidine Scrn Ur Amphetamines Screen U Benzodiazepines Scrn [place] Urine Cocaine Screen U Marijuana (THC) Screen Ethyl Alcohol < 10 COVID-19 ([facility]) Negative COVID-19 [facility] Com See Note 01/07/22 01/08/22 01/09/22 17:32 18:06 08:22 WBC RBC Hgb Hct MCV MCH MCHC RDW Plt Count MPV Immature Gran % (Auto) Neut % (Auto) Lymph % (Auto) [place] % (Auto) Eos % (Auto) Baso % (Auto) Lymph # (Auto) [place] # (Auto) Eos # (Auto) Baso # (Auto) Abs Immat Gran (auto) Absolute Neuts (auto) Absolute Nucleated RBC Nucleated RBC % (auto) Sodium Potassium Chloride Carbon Dioxide Anion Gap BUN Creatinine Estim Creat Clear Calc Estimated GFR Random Glucose Estimat Average Glucose 88 Hemoglobin A1c % 4.7 Calcium Magnesium Total Bilirubin AST ALT Alkaline Phosphatase Total Protein Albumin Triglycerides Cholesterol LDL Cholesterol, Calc HDL Cholesterol Vitamin B12 Folate TSH Free T4 Urine Color Urine Appearance Urine pH Ur Specific [place] Urine Protein Urine Glucose (UA) Urine Ketones Urine Blood Urine Nitrite Ur Leukocyte Esterase Urine Test Urine Opiates Screen Urine Fentanyl Screen Ur Barbiturates Screen Ur Phencyclidine Scrn Ur Amphetamines Screen U Benzodiazepines Scrn [place] 0.48 L Urine Cocaine Screen U Marijuana (THC) Screen Ethyl Alcohol COVID-19 ([facility]) Negative COVID-19 [facility] Com See Note 01/09/22 01/09/22 08:22 08:22 WBC RBC Hgb Hct MCV MCH MCHC RDW Plt Count MPV Immature Gran % (Auto) Neut % (Auto) Lymph % (Auto) [place] % (Auto) Eos % (Auto) Baso % (Auto) Lymph # (Auto) [place] # (Auto) Eos # (Auto) Baso # (Auto) Abs Immat Gran (auto) Absolute Neuts (auto) Absolute Nucleated RBC Nucleated RBC % (auto) Sodium Potassium Chloride Carbon Dioxide Anion Gap BUN Creatinine Estim Creat Clear Calc Estimated GFR Random Glucose Estimat Average Glucose Hemoglobin A1c % Calcium Magnesium 2.0 Total Bilirubin AST ALT Alkaline Phosphatase Total Protein Albumin Triglycerides 108 Cholesterol 179 LDL Cholesterol, Calc 109 HDL Cholesterol 49 Vitamin B12 368 Folate 19.8 TSH 0.64 Free T4 1.16 Urine Color Urine Appearance Urine pH Ur Specific [place] Urine Protein Urine Glucose (UA) Urine Ketones Urine Blood Urine Nitrite Ur Leukocyte Esterase Urine Test Urine Opiates Screen Urine Fentanyl Screen Ur Barbiturates Screen Ur Phencyclidine Scrn Ur Amphetamines Screen U Benzodiazepines Scrn [place]ios Urine Cocaine Screen U Marijuana (THC) Screen Ethyl Alcohol COVID-19 ([facility]) COVID-19 Clin Com DS: Summary Hospital Course Hospital Course: Subjective Notes: Man Warning and Conditional Voluntary Healthcare Proxy: No Guardianship: No Medical Problems Affecting Mental Status: No Narrative: Deepika is a 46 y.o. Female who carries a dx of bipolar I DO with psychotic features, PTSD, and cannabis use disorder. Has hx of migraine headaches, fibro. She [place] [facility] [place] due to worsening depression, anxiety, and SI with plan to hang herself. She told ED providers that earlier in the [place] the mall she was running errands and became very paranoid and had to go home. She has been med adherent, lithium level 0.48.? Utox positive for cannabis, no alcohol abuse. Pt was recently admitted [place] [facility] [place] 11/30/2021-12/04/2021 due to SI with plan to OD on her meds. Precipitating factors include strained relationship with her spouse (gender non-binary, they/ them pronouns), who told her why do not you just kill yourself prior to her coming to the hospital. During her brief course of hospitalization, pt was re-started on lithium and continued on PRN klonopin, haldol, and benadryl PRN for agitation, mood lability, and paranoia. Since this admission, her lithium has been increased to 300 mg BID in the OP setting. Per ED note, lithium has helped with agitation and hypomanic sx, however she remains depressed. HOSPITAL COURSE On the unit, pt was admitted on a CV and placed on 15 minutes checks for safety. Pt appeared to have dystonia from haldol. She reported improvement in s/s of hypomania/wendy with lithium. She reported residual s/s of depression but adamantly suicidal or homicidal ideation. She reports financial and relationship problems adding to her stress. After discussing risks, benefits and alternative treatment options, pt agreed to start latuda, which she tolerated well and was titrated to 40mg po daily. Her affect gradually presented as brighter, non labile, no signs of psychosis/delusions. No SI/HI. She presented as future oriented and agreed to step down to [facility]. She was sleeping and eating well. Status at Discharge Cognitive/behavioral status at discharge: Pt with bright, non labile mood. No SI/HI. Future oriented. No s/s of psychosis or delusional content noted or reported. She is sleeping and eating well. Functional status at discharge: independent ambulation Overall status at discharge: patient is progressing back to baseline Time Spent with Patient Time attestation: Total time spent providing and/or coordinating discharge services: Discharge Plan Discharge Anticipated Discharge Date/Time: 01/13/22 09:43 Patient Disposition: Home Health Service Discharge Diagnosis: Bipolar type 2 Disorder Referrals: PARTIAL HOSPITALIZATION PROGRAM [Other] - 01/21/22 8:00 am (INTAKE) RENAE GEIGER, PSYCHIATRY [Other] - 01/18/22 (TELEHEALTH) BRYSON WEAVER, THERAPIST [Other] - 01/21/22 1:00 pm (TELEHEALTH) Jessica Bishop MD [Primary Care Provider] - 1 Week (Provider would call pt for follow up appt) Discharge Medications: New nicotine (polacrilex) 2 mg Gum 2 mg buccal Q2H PRN (Reason: Nicotine Cravings) Qty: 90 0RF lithium carbonate 300 mg Tablet Extended Release 300 mg PO BID Qty: 60 0RF Latuda 40 mg Tablet 40 mg PO DAILY@1700 Qty: 30 0RF Label Comments: Patient stated she was told to take in the am if too stimulating with food. polyethylene glycol 3350 17 gram Powder In Packet 17 g PO DAILY Qty: 30 0RF trazodone 100 mg Tablet 100 mg PO BEDTIME PRN (Reason: Insomnia) Qty: 30 0RF Continued Nurtec ODT 75 mg tablet,disintegrating 75 mg PO Q OTHER DAY PRN (Reason: migraine headache) 30 Days Qty: 16 3RF Rx Instructions: at onset of migraine (do not take Fioricet for 7 days prior) magnesium oxide 400 mg (241.3 mg magnesium) tablet 400 mg PO DAILY Rx Instructions: may hold for loose stools clonazepam 1 mg tablet 1 mg PO BID PRN (Reason: Anxiety) vitamin B complex Capsule 1 cap PO DAILY riboflavin (vitamin B2) 400 mg tablet 400 mg PO DAILY 30 Days Qty: 30 6RF Discontinued nicotine (polacrilex) 2 mg Gum 2 mg buccal QID PRN (Reason: Nicotine Cravings) Qty: 20 0RF haloperidol 5 mg Tablet 5 mg PO TID PRN (Reason: agitation, anxiety) Qty: 6 3RF lithium carbonate 300 mg tablet extended release 300 mg PO BID No Action qrietknxvo-vgdehcvubzvpb-kgpj 50-325-40 mg capsule 1 cap PO Q4H PRN (Reason: migraine headache) 30 Days Qty: 16 2RF Rx Instructions: One tab at onset of migraine, may repeat in 4 hours (max 2 caps per day or 4 caps per week) buspirone 7.5 mg tablet 7.5 mg PO TID 7 Days Qty: 21 0RF cyanocobalamin (vitamin B-12) [Vitamin B-12] 250 mcg tablet 250 mcg PO DAILY Qty: 30 0RF Discharge Orders: Discharge Order (Routine); Ordered 01/13/22 Ordered By: Lauren Greco Diet: Regular diet Activity on Discharge: As tolerated Stand Alone Forms: Patient Portal Discharge page, Community Support Care Plan Goals: 1. Maintain mood 2. No SI/HI No aggression towards self or others Health Concerns: Follow up with PCP Plan of Treatment: 1. Take medications as prescribed 2. Go to nearest ED or call 911 in event of emergency Assessment: Pt with brighter non labile affect. NO SI/HI. No signs of psychosis or delusional content. No aggression towards self or others. future oriented. Discharge Date/Time: 01/13/22 13:51
== END 2022-01-13 13:51 | disposition home health service (06) | DRG 885 ==
LOC: HO.ED 01-08 10:52 → HO.PADLT16 01-08 22:54
PROVIDERS: Nurse Practitioner Family; Admitting Provider Registered Nurse; Emergency Provider Emergency Medicine; PCP Internal Medicine; Visit Provider Social Worker
DX: F31.60 Bipolar disorder, current episode mixed, unspecified (principal); R45.851 Suicidal ideations; F43.10 Post-traumatic stress disorder, unspecified; Z20.822 Contact with and (suspected) exposure to COVID-19; Z88.8 Allergy status to other drugs, medicaments and biological substances; Z79.899 Other long term (current) drug therapy
CPT/HCPCS: 36415; 80053; 80061; 80178; 80307; 81003; 81025; 82077; 82607; 82746; 83036; 83735; 84439; 84443; 85025; 87635; 93005; 99285; Q0163

== ENCOUNTER → 2022-01-19 09:42 | Outpatient (BNVA) | payer OTHER, SELFPAY | PROVIDERS: PCP Internal Medicine; Visit Provider Nurse Practitioner Family | DX: G43.109 Migraine with aura, not intractable, without status migrainosus (principal); R25.9 Unspecified abnormal involuntary movements; F31.9 Bipolar disorder, unspecified | CPT/HCPCS: 99212 ==

== ENCOUNTER 2022-01-27 09:15 | Outpatient (RCR) | payer OTHER, SELFPAY ==
--- NOTE | 2022-01-22 14:53 | PC.ADMIT ---
Patient is a 46 year old female who was referred by [facility] inpatient behavioral health unit where patient was admitted d/t increased depression with suicidal thoughts to hang herself [place] a park [place]. Patient has a history of 3 SA. She holds a dx of Bipolar I disorder. Patient has a history of inpatient and [facility] admissions. Patient reports she has been taking her medications as prescribed prior to hospitalization and is taking them as prescribed currently. Patient is at [facility] as a step down to treatment. Patient reports she wants to work on coping skills and get her life back together. Patient denied SI during the nursing assessment however stated she does have chronic thoughts however denied any plans or intention of killing herself. Patent is alert and oriented x4. Calm and cooperative. Engages in conversation. Presented with depressed mood and anxious affect. Patient given a copy of her safety plan if needed. Patient given written and verbal education about nicotine cessation along with the mental and physical health effects of heavy marijuana use and addiction.
[2022-01-22 15:00] VITALS: BP 134/80; PULSE 76; TEMP 36.3; BMI 29.7
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
--- NOTE | 2022-01-26 10:00 | PC.NURSE ---
Deepika spoke to staff and called out sick today.
--- NOTE | 2022-01-26 10:50 | PC.NURSE ---
I spoke to Deepika. She stated she thinks she her and her son have allergies. She stated her eyes are swollen and is having diarrhea. Reports her son has a cough. She plans on taking a Covid test prior to coming to the program to be sure. Stated she will not come in if having Covid sxs. Team is aware.
--- NOTE | 2022-01-27 14:16 | PC.NURSE ---
I met with pt to review her treatment plan and discuss schedule and aftercare. She has a new therapist at [facility] who she said she likes. She said she feels a bit overwhelmed with PHP, as she feels the need to focus more on housing and finances, which feel more pressing than processing feelings and learning coping skills. She questioned whether she might do a less intensive program instead and we spoke about options (possible DBT, day treatment). She said she has done day treatment before, and doesn't want to get stuck in it for years . She said she would like to give PHP a bit more time and to see what she thinks after a few more days.
--- NOTE | 2022-01-27 14:32 | P.PNPSP_ITS ---
Subjective Subjective Date of Service: 01/27/22 Reason For Visit: bipolar Medical Problems Affecting Mental Status: No Interim History: Reports mood is a little more stable, although continues with some depression and anxiety. Would like increase in BuSpar. Would also like vitamin B12 prescribed to help manage anxiety sx. No SI/HI reported. Medication Compliance: Yes Side effects from medications: No Attending Groups: Yes Review of Systems Acute medical concerns: No Medical Review of Systems: unchanged Review of Systems Review of Systems Yes all other systems are reviewed and are negative Constitutional: Reports no additional constitutional complaints Mental Status Exam Mental Status Exam Narrative: NAD Patient Appearance: Appropriate Patient Orientation: Person, Place, Time and Situation Level of Consciousness: Appropriate Patient Behavior: Appropriate and Cooperative Mood Description: Depressed and Anxious Affect Description: Depressed and Anxious Patient Cognition Impaired: No Ability to Follow Directions: Excellent Speech Pattern: Clear and Appropriate Memory Description: Intact Hallucinations: None Delusions: Not Present Thought Process: Intact Depressive Symptoms: Increased Anxiety, Increased Irritability, Crying Spells, Sleeping More Than Usual, Loss of Int. in Activity, Isolating-Friends/Family, Feelings of Guilt, Increased Fatigue, Thoughts of /Suicide and Difficulty Concentrating Judgement: Fair Diagnostics Vital Signs (24Hr): BMI result Body Mass Index 29.7 Assessment & Plan Assessment & Plan (1) Bipolar I disorder with mixed features: Status: Acute Code(s): F31.9 - Bipolar disorder, unspecified Assessment and Plan: Reports mood is a little more stable, although continues with some depression and anxiety. Would like increase in BuSpar. We discussed ordering it t.i.d., or keeping it b.i.d.. She reports that she notices when it stops being effective during the day. Interested in increasing dose, as well as t.i.d. dosing. Would also like vitamin B12 prescribed to help manage anxiety sx. No SI/HI reported. Finding groups to be helpful. (2) PTSD (post-traumatic stress disorder): Status: Acute Code(s): F43.10 - Post-traumatic stress disorder, unspecified Plan 1. Continue with current [facility] plan of care. 2. Increase BuSpar to 7.5 mg t.i.d.. A 7 day supply sent to pharmacy. 3. Vitamin B12, 250mcg, 30 day supply sent to pharmacy. 4. Follow-up as per protocol. Patient educated on: diagnosis, medication risk/benefits and therapeutic strategies Informed Consent: understands Reason for contiued partial hosp. stay Substantial Risk for: harm to self and inability to function Certification I certify that partial hospital treatment is medically necessary due to the symptoms and problems resulting from the patient's mental illness and the failure to treat the patient at the partial hospital level of care would likely result in the patient requiring inpatient psychiatric care which could not be prevented at a less intensive level of care. I spent minutes with the patient and/or on the patient floor today, greater than?50% of which was spent counseling/coordinating care. Discharge Plan Discharge Attending provider: Felipe Jansen Medications: New buspirone 7.5 mg tablet 7.5 mg PO TID 7 Days Qty: 21 0RF cyanocobalamin (vitamin B-12) [Vitamin B-12] 250 mcg tablet 250 mcg PO DAILY Qty: 30 0RF No Action Nurtec ODT 75 mg tablet,disintegrating 75 mg PO Q OTHER DAY PRN (Reason: migraine headache) 30 Days Qty: 16 3RF Rx Instructions: at onset of migraine (do not take Fioricet for 7 days prior) [id number] 50-325-40 mg capsule 1 cap PO Q4H PRN (Reason: migraine headache) 30 Days Qty: 16 2RF Rx Instructions: One tab at onset of migraine, may repeat in 4 hours (max 2 caps per day or 4 caps per week) magnesium oxide 400 mg (241.3 mg magnesium) tablet 400 mg PO DAILY Rx Instructions: may hold for loose stools clonazepam 1 mg tablet 1 mg PO BID PRN (Reason: Anxiety) vitamin B complex Capsule 1 cap PO DAILY nicotine (polacrilex) 2 mg Gum 2 mg buccal Q2H PRN (Reason: Nicotine Cravings) Qty: 90 0RF lithium carbonate 300 mg Tablet Extended Release 300 mg PO BID Qty: 60 0RF Latuda 40 mg Tablet 40 mg PO DAILY@1700 Qty: 30 0RF Label Comments: Patient stated she was told to take in the am if too stimulating with food. polyethylene glycol 3350 17 gram Powder In Packet 17 g PO DAILY Qty: 30 0RF trazodone 100 mg Tablet 100 mg PO BEDTIME PRN (Reason: Insomnia) Qty: 30 0RF riboflavin (vitamin B2) 400 mg tablet 400 mg PO DAILY 30 Days Qty: 30 6RF Stand Alone Forms: Patient Portal Discharge page
[2022-01-28 13:42] LABS: Amphetamine Screen Urine Not Detected (Not Detect); Barbiturates, Urine POSITIVE (Not Detect); Benzodiazepines Screen Urine Not Detected (Not Detect); Cannabinoid Screen Urine POSITIVE (Not Detect); Cocaine Screen Urine Not Detected (Not Detect); Fentanyl, urine Not Detected (Not Detect); Opiate Screen Urine Not Detected (Not Detect); Phencyclidine Screen Urine Not Detected (Not Detect)
--- NOTE | 2022-01-28 15:09 | PC.NURSE ---
Pt called out from PHP today, stating she might have messed up her medications and is not able to drive. She spoke with Karena, the department secretary. I called and spoke with her and she said she felt sedated after taking her 7am medication but is okay now. She doesn't think she overtook the meds. Pt said she is still ambivalent around whether or not to continue in PHP, stating she has a decreased energy level and that PHP feels a bit like too much. She asked if she might do PHP every other day and I informed her that this isn't an option. She said her therapist has spoken with her about another program that helps with finances and case management for her to do after PHP. She wasn't sure what the program is called or about what more it entails, and I agreed to call and speak with her therapist about this. She will attend PHP tomorrow, and said we can touch base about it then.
--- NOTE | 2022-01-28 15:20 | PC.NURSE ---
I called and spoke to pt's therapist, Josesito Arteaga from [facility]. He explained that he spoke to pt about a program at [facility] called the IHCT program (Integrative Health Care Team). He said it entails help with finances and case management, that they can sometimes get clients a corporate human resources manager, and work on housing needs. (Pt had said she is need of a bankruptcy corporate human resources manager and cannot afford her rent). He said this program requires clients to meet with the team 1-2 times per week and that it shouldn't interfere with PHP, and that he will sign her up now . He said he will be meeting with pt tomorrow at 3pm and will discuss it further at that point. I called pt back and explained all of this and reminded her about her 3pm appt with her therapist, which she was aware of. She said she still might consider discharge from PHP due to her low energy level, and will continue to think about it.
--- NOTE | 2022-01-28 15:40 | PC.NURSE ---
Case was opened in treatment team.
--- NOTE | 2022-02-01 15:16 | PC.NURSE ---
I called and spoke with pt after she called and left message stating she is fine, but doesn't want to continue in PHP. She reiterated her concerns about PHP, that she has low energy and needs to focus more on finances and more case management issues. She is excited to get started in [facility]'s IHCT program with Josesito Arteaga and has met with him already about this. She was informed that she can call any time and be assessed to restart PHP if and when needed in the future.
--- NOTE | 2022-02-01 16:34 | PC.NURSE ---
Call placed to patient today 02/01/2022 as patient did not arrived to [facility] as scheduled. Spoke with patient who reports: I am fine, I want to discharge from [facility], it is not working for me Message sent to Alyson ZAPATA who will call patient today regarding her request for discharge.
== END 2022-02-01 23:59 | disposition home or self-care (01) ==
LOC: HO.PHPA 09:15
PROVIDERS: Nurse Practitioner Psychiatric/Mental Health; Visit Provider Psychiatry & Neurology Psychiatry
DX: F31.9 Bipolar disorder, unspecified (principal); F43.10 Post-traumatic stress disorder, unspecified; F12.10 Cannabis abuse, uncomplicated; Z79.899 Other long term (current) drug therapy
CPT/HCPCS: 80307; 90791; 90792; 90853

== ENCOUNTER 2022-02-19 08:02 | Outpatient (REF) | payer OTHER, SELFPAY ==
[2022-02-19 12:41] LABS: Lithium 0.71 mmol/L (0.60-1.20)
== END 2022-02-19 08:03 | disposition home or self-care (01) ==
LOC: HO.HMGCLDS 08:02
PROVIDERS: PCP Internal Medicine; Visit Provider Psychiatry & Neurology Psychiatry
DX: Z79.899 Other long term (current) drug therapy (principal)
CPT/HCPCS: 36415; 80178